=== PATIENT | female | born 2000 | race Caucasian/White ===

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

== ENCOUNTER 2018-02-12 22:12 | Emergency (ER) | payer OTHER ==
[2018-02-12 22:42] VITALS: TEMP 98.6
--- NOTE | 2018-02-12 23:05 | XR ---
EXAMINATION TYPE: XR wrist complete RT DATE OF EXAM: 02/12/2018 COMPARISON: NONE HISTORY: Wrist and hand pain TECHNIQUE: 4 views FINDINGS: I see no fracture nor dislocation. Scaphoid is intact. Joint spaces are normal. There are n o pathologic calcifications. IMPRESSION: Negative right wrist exam.
--- NOTE | 2018-02-12 23:06 | XR ---
EXAMINATION TYPE: XR hand complete RT DATE OF EXAM: 02/12/2018 COMPARISON: NONE HISTORY: Pain after falling off of a porch. TECHNIQUE: 3 views. FINDINGS: Metacarpals appear intact. I see no fracture nor dislocation. There are no erosions. Impression Negative right hand exam.
--- NOTE | 2018-02-13 00:17 | ED ---
Upper Extremity HPI - General Chief Complaint: Extremity Injury, Upper Stated Complaint: rt wrist injury Time Seen by Provider: 02/12/18 23:56 Source: patient, RN notes reviewed Mode of arrival: ambulatory Limitations: no limitations - History of Present Illness Initial Comments: This is a 17-year-old female who presents to the emergency department with chief complaint of right wrist injury. Patient states that at 8 PM this evening she was walking down her porch steps. She states that she missed the last step and fell forward landing on the dorsal aspect of her right arm. Patient complains of pain to the right wrist. Denies any other injuries or trauma. Denies head, neck or back pain. Denies fevers or chills, chest pain or shortness of breath, abdominal pain, nausea or vomiting. Patient does state that she has neutropenia and has had frequent fractures in the past. She requests a disc of her x-ray. - Related Data Home Medications Medication Instructions Recorded Confirmed Albuterol Inhaler [Ventolin Hfa 2 puff INHALATION RT-Q6H PRN 12/08/15 06/22/17 Inhaler] Lisdexamfetamine Dimesylate 40 mg PO QAM 12/08/15 06/22/17 [Vyvanse] Medroxyprogesterone Acetate 150 mg IM Q90D 07/30/16 06/22/17 [Depo-Provera] Montelukast [Singulair] 10 mg PO HS 01/16/17 06/22/17 QUEtiapine [SEROquel] 50 mg PO HS 01/16/17 06/22/17 oxyCODONE HCL/ACETAMINOPHEN 1 tab PO TID PRN 01/16/17 06/22/17 [Percocet 10-325 mg] Naproxen 500 mg PO Q12H PRN 03/11/17 06/22/17 Allergies Allergy/AdvReac Type Severity Reaction Status Date / Time codeine Allergy Rash/Hives Verified 02/12/18 22:42 Penicillins Allergy Rash/Hives Verified 02/12/18 22:42 Sulfa (Sulfonamide Allergy Rash/Hives Verified 02/12/18 22:42 Antibiotics) tomato Allergy Rash/Hives Verified 02/12/18 22:42 tramadol Allergy Rash/Hives Verified 02/12/18 22:42 venom-honey bee Allergy Swelling Verified 02/12/18 22:42 [bee venom (honey bee)] chocolate flavor AdvReac Alters Verified 02/12/18 22:42 Estrogen Levels lactose AdvReac Intolerant Verified 02/12/18 22:42 Review of Systems ROS Statement: Those systems with pertinent positive or pertinent negative responses have been documented in the HPI. ROS Other: All systems not noted in ROS Statement are negative. Past Medical History Past Medical History: Asthma Additional Past Medical History / Comment(s): osteopenia History of Any Multi-Drug Resistant Organisms: None Reported Past Surgical History: Ear Surgery, Orthopedic Surgery, Tonsillectomy Additional Past Surgical History / Comment(s): r knee x 2 Past Psychological History: ADD/ADHD, Bipolar Smoking Status: Never smoker Past Alcohol Use History: None Reported Past Drug Use History: None Reported General Exam - General Exam Comments Initial Comments: General: Awake and alert, well-developed; in no apparent distress. HEENT: Head atraumatic, normocephalic. Pupils are equal, round and reactive to light. Extraocular movements intact. Oropharynx moist without erythema or exudate. Neck: Supple. Normal ROM. Cardiovascular: Regular rate and rhythm. No murmurs, rubs or gallops. Chest symmetrical. Respiratory: Lungs clear to auscultation bilaterally. No wheezes, rales or rhonchi. Normal respiratory effort with no use of accessory muscles. Musculoskeletal: Normal range of motion of the right wrist and hand. There is soft tissue swelling and ecchymosis noted to the dorsal aspect. No snuffbox tenderness. Sensation is intact. Radial pulses are 2+ equal and palpable bilaterally. Skin: [place], warm and dry without rashes. Neurological: Alert and oriented x3. CN II-XII grossly intact. Speech is fluent and answers are appropriate. No focal neuro deficits. Psychiatric: Normal mood and affect. No overt signs of depression or anxiety noted. Limitations: no limitations Course Vital Signs 02/12/18 22:39 Temperature 98.6 F Pulse Rate 87 Respiratory 18 Rate Blood Pressure 128/80 O2 Sat by Pulse 97 Oximetry Medical Decision Making - Medical Decision Making This is a 17-year-old female who presents to the emergency department with chief complaint of right wrist injury. On physical examination, there is soft tissue swelling and ecchymosis noted to the dorsal aspect of the right wrist. No obvious gross deformities. No snuffbox tenderness. X-rays of the wrist and hand were obtained which revealed no acute abnormalities. Patient does report a history of neutropenia for which she suffered multiple fractures. She requested disks of her x-ray for follow-up. Patient vital signs are stable and she is in no acute distress. She will be discharged home at this time. She is in agreement and voices understanding. All questions were answered. - Radiology Data Radiology results: report reviewed, image reviewed X-ray right wrist impression: Negative right wrist exam. X-ray right hand impression: Negative right hand exam. Disposition Clinical Impression: Contusion of right wrist Disposition: HOME SELF-CARE Condition: Good Instructions: Contusion in Adults (ED) Additional Instructions: Please follow-up with orthopedics if no improvement in pain within 7-10 days. Please follow up with primary care provider within 1-2 days. Return to emergency department if symptoms should worsen or any concerns arise. Is patient prescribed a controlled substance at d/c from ED?: No Referrals: Juan J Sandra DO [Primary Care Provider] - 1-2 days Ramin William DO [Doctor of Osteopathic Medicine] - 1-2 days Time of Disposition: 00:36
[2018-02-13 00:43] VITALS: BP 120/85; PULSE 78; RESP 16
== END 2018-02-13 00:44 | disposition home or self-care (01) ==
LOC: EC 22:12
DX: S60.211A Contusion of right wrist, initial encounter (principal); J45.909 Unspecified asthma, uncomplicated; F90.9 Attention-deficit hyperactivity disorder, unspecified type; F31.9 Bipolar disorder, unspecified; Z79.3 Long term (current) use of hormonal contraceptives; Z79.899 Other long term (current) drug therapy; Z88.0 Allergy status to penicillin; Z88.2 Allergy status to sulfonamides; Z88.5 Allergy status to narcotic agent; Z91.011 Allergy to milk products; Z91.030 Bee allergy status; Z91.018 Allergy to other foods; W10.9XXA Fall (on) (from) unspecified stairs and steps, initial encounter
CPT/HCPCS: 99283

== ENCOUNTER 2018-04-12 22:18 | Emergency (ER) | payer OTHER ==
[2018-04-12 22:27] VITALS: RESP 18; TEMP 98.2
--- NOTE | 2018-04-12 23:17 | XR ---
EXAMINATION TYPE: XR foot complete LT DATE OF EXAM: 04/12/2018 COMPARISON: NONE HISTORY: Pain TECHNIQUE: 3 views FINDINGS: Metatarsals appear intact. I see no fracture nor dislocation. Joint spaces are normal. IMPRESSION: Negative left foot exam.
--- NOTE | 2018-04-12 23:18 | XR ---
EXAMINATION TYPE: XR ankle complete LT DATE OF EXAM: 04/12/2018 COMPARISON: NONE HISTORY: Ankle pain foot pain TECHNIQUE: 3 views FINDINGS: Ankle mortise is anatomic. I see no fracture nor dislocation. Joint spaces are normal. IMPRESSION: Negative left ankle exam.
--- NOTE | 2018-04-12 23:52 | ED ---
General Adult HPI - General Chief complaint: Extremity Injury, Lower Stated complaint: Ankle injury Source: patient, RN notes reviewed Mode of arrival: ambulatory Limitations: no limitations - History of Present Illness Initial comments: 17-year-old female presents to the emergency department for a chief complaint of left foot and ankle pain. Patient states she sprained her ankle 2 weeks ago. Patient states that yesterday she missed the last step when she was walking on the stairs and injured the ankle again. Patient states she has been ambulatory on it. She denies pain in the hip or pelvis. Patient does admit to pain in the foot as well. Patient denies falling or hitting her head. Patient has no other complaints at this time including shortness of breath, chest pain, abdominal pain, nausea or vomiting, headache, or visual changes. - Related Data Home Medications Medication Instructions Recorded Confirmed Albuterol Inhaler [Ventolin Hfa 2 puff INHALATION RT-Q6H PRN 12/08/15 06/22/17 Inhaler] Lisdexamfetamine Dimesylate 40 mg PO QAM 12/08/15 06/22/17 [Vyvanse] Medroxyprogesterone Acetate 150 mg IM Q90D 07/30/16 06/22/17 [Depo-Provera] Montelukast [Singulair] 10 mg PO HS 01/16/17 06/22/17 QUEtiapine [SEROquel] 50 mg PO HS 01/16/17 06/22/17 oxyCODONE HCL/ACETAMINOPHEN 1 tab PO TID PRN 01/16/17 06/22/17 [Percocet 10-325 mg] Naproxen 500 mg PO Q12H PRN 03/11/17 06/22/17 Allergies Allergy/AdvReac Type Severity Reaction Status Date / Time codeine Allergy Rash/Hives Verified 04/12/18 22:27 Penicillins Allergy Rash/Hives Verified 04/12/18 22:27 Sulfa (Sulfonamide Allergy Rash/Hives Verified 04/12/18 22:27 Antibiotics) tomato Allergy Rash/Hives Verified 04/12/18 22:27 tramadol Allergy Rash/Hives Verified 04/12/18 22:27 venom-honey bee Allergy Swelling Verified 04/12/18 22:27 [bee venom (honey bee)] chocolate flavor AdvReac Alters Verified 04/12/18 22:27 Estrogen Levels lactose AdvReac Intolerant Verified 04/12/18 22:27 Review of Systems ROS Statement: Those systems with pertinent positive or pertinent negative responses have been documented in the HPI. ROS Other: All systems not noted in ROS Statement are negative. Past Medical History Past Medical History: Asthma Additional Past Medical History / Comment(s): osteopenia History of Any Multi-Drug Resistant Organisms: None Reported Past Surgical History: Ear Surgery, Orthopedic Surgery, Tonsillectomy Additional Past Surgical History / Comment(s): r knee x 2 Past Psychological History: ADD/ADHD, Bipolar Smoking Status: Current every day smoker Past Alcohol Use History: None Reported Past Drug Use History: None Reported General Exam Limitations: no limitations General appearance: alert, in no apparent distress Head exam: Present: atraumatic, normocephalic, normal inspection Eye exam: Present: normal appearance. Absent: scleral icterus, conjunctival injection ENT exam: Present: normal exam, mucous membranes moist Neck exam: Present: normal inspection, full ROM. Absent: tenderness, meningismus, lymphadenopathy Respiratory exam: Present: normal lung sounds bilaterally. Absent: respiratory distress, wheezes, rales, rhonchi, stridor Cardiovascular Exam: Present: regular rate, normal rhythm, normal heart sounds. Absent: systolic murmur, diastolic murmur, rubs, gallop, clicks Extremities exam: Present: tenderness (Tenderness of the lateral malleolus and navicular of the left ankle and foot), normal capillary refill (Capillary refill less than 10 seconds and PT pulse 2+ in the left lower extremity), other (Sensation intact in the left toes and foot. No erythema or increased warmth or spreading redness. No evidence of infection.). Absent: full ROM (Full range of motion of digits. Patient has limited dorsiflexion of the left ankle to about 10. Patient has full plantar flexion.), joint swelling (No swelling or ecchymosis noted in the left lower extremity.) Back exam: Absent: tenderness Neurological exam: Present: alert, oriented X3, CN II-XII intact Psychiatric exam: Present: normal affect, normal mood Course Vital Signs 04/12/18 22:25 Temperature 98.2 F Pulse Rate 107 H Respiratory 18 Rate Blood Pressure 117/70 O2 Sat by Pulse 98 Oximetry Medical Decision Making - Medical Decision Making 17-year-old female presents to the emergency department for a chief complaint of left ankle pain times one day. Patient states she sprained it 2 weeks ago but then reinjured it yesterday. On exam patient has some limited range of motion when dorsi flexing the ankle. However plantar flexion is intact. Patient has mild lateral malleolus tenderness as well as mild forefoot tenderness. No swelling or ecchymosis noted. Patient is able to ambulate on the foot. X-ray of the foot and ankle were negative for any fractures. Patient may have a sprain of the ankle. At this time patient will be given an Josh wrap. She states she has crutches at home. Patient is to follow-up with orthopedics in one to 2 days. Patient to return to the emergency Department if she has any worsening symptoms. She was educated on rice therapy. Disposition Clinical Impression: Ankle pain, left Disposition: HOME SELF-CARE Condition: Good Instructions: Ankle Sprain (ED) Additional Instructions: Please follow-up with orthopedics in one to 2 days. In the meantime please rest ice and elevate the ankle. Use Josh wrap and crutches as needed. Return to the emergency department if you have any worsening symptoms. Is patient prescribed a controlled substance at d/c from ED?: No Referrals: Juan J Sandra DO [Primary Care Provider] - 1-2 days Inocente Malik MD [Medical Doctor] - 1-2 days Time of Disposition: 23:52
[2018-04-12 23:56] VITALS: BP 135/73; PULSE 88
== END 2018-04-12 23:59 | disposition home or self-care (01) ==
LOC: EC 22:18
DX: M25.572 Pain in left ankle and joints of left foot (principal); J45.909 Unspecified asthma, uncomplicated; F31.9 Bipolar disorder, unspecified; F90.9 Attention-deficit hyperactivity disorder, unspecified type; F17.200 Nicotine dependence, unspecified, uncomplicated; Z79.899 Other long term (current) drug therapy; Z88.5 Allergy status to narcotic agent; Z88.0 Allergy status to penicillin; Z88.2 Allergy status to sulfonamides; Z91.018 Allergy to other foods; Z91.030 Bee allergy status; Z88.8 Allergy status to other drugs, medicaments and biological substances
CPT/HCPCS: 99283

== ENCOUNTER 2018-05-11 20:25 | Emergency (ER) | payer OTHER ==
[2018-05-11] MEDS ORDERED: CEPHALEXIN 500 MG CAP PO STA (20:41)
[2018-05-11] MEDS ORDERED: CEPHALEXIN 500MG STARTER PACK 4 CAP BTL PO STA (20:41)
--- NOTE | 2018-05-11 20:49 | ED ---
General Adult HPI - General Chief complaint: Skin/Abscess/Foreign Body Stated complaint: Arm swelling Time Seen by Provider: 05/11/18 20:34 Source: patient, RN notes reviewed Mode of arrival: ambulatory Limitations: no limitations - History of Present Illness Initial comments: 17-year-old female presents to the emergency department for a chief complaint of rash times one day. Patient states she woke up today and had an area of erythema noted to the left forearm. She states she thought she may have been bitten by a bug during the night. She states the redness has began to spread more so became concerned. She states it is somewhat swollen as well. She states she did draw with a pen around the erythema before she left the house. She denies any fevers or chills. She denies any pain with movement of the elbow or wrist. Patient has no other complaints at this time including shortness of breath, chest pain, abdominal pain, nausea or vomiting, headache, or visual changes. - Related Data Home Medications Medication Instructions Recorded Confirmed Albuterol Inhaler [Ventolin Hfa 2 puff INHALATION RT-Q6H PRN 12/08/15 06/22/17 Inhaler] Lisdexamfetamine Dimesylate 40 mg PO QAM 12/08/15 06/22/17 [Vyvanse] Medroxyprogesterone Acetate 150 mg IM Q90D 07/30/16 06/22/17 [Depo-Provera] Montelukast [Singulair] 10 mg PO HS 01/16/17 06/22/17 QUEtiapine [SEROquel] 50 mg PO HS 01/16/17 06/22/17 oxyCODONE HCL/ACETAMINOPHEN 1 tab PO TID PRN 01/16/17 06/22/17 [Percocet 10-325 mg] Naproxen 500 mg PO Q12H PRN 03/11/17 06/22/17 Previous Rx's Medication Instructions Recorded Cephalexin [Keflex] 500 mg PO Q6HR 10 Days cap 05/11/18 Clindamycin HCl [Cleocin] 450 mg PO TID 10 Days cap 05/11/18 Allergies Allergy/AdvReac Type Severity Reaction Status Date / Time codeine Allergy Rash/Hives Verified 05/11/18 20:32 Penicillins Allergy Rash/Hives Verified 11/03/18 20:32 Sulfa (Sulfonamide Allergy Rash/Hives Verified 05/11/18 20:32 Antibiotics) tomato Allergy Rash/Hives Verified 05/11/18 20:32 tramadol Allergy Rash/Hives Verified 05/11/18 20:32 venom-honey bee Allergy Swelling Verified 05/11/18 20:32 [bee venom (honey bee)] chocolate flavor AdvReac Alters Verified 05/11/18 20:32 Estrogen Levels lactose AdvReac Intolerant Verified 05/11/18 20:32 Review of Systems ROS Statement: Those systems with pertinent positive or pertinent negative responses have been documented in the HPI. ROS Other: All systems not noted in ROS Statement are negative. Past Medical History Past Medical History: Asthma Additional Past Medical History / Comment(s): osteopenia History of Any Multi-Drug Resistant Organisms: None Reported Past Surgical History: Ear Surgery, Orthopedic Surgery, Tonsillectomy Additional Past Surgical History / Comment(s): r knee x 2 Past Psychological History: ADD/ADHD, Bipolar Smoking Status: Current every day smoker Past Alcohol Use History: None Reported Past Drug Use History: None Reported General Exam Limitations: no limitations General appearance: alert, in no apparent distress Head exam: Present: atraumatic, normocephalic, normal inspection Eye exam: Present: normal appearance, PERRL, EOMI. Absent: scleral icterus, conjunctival injection, periorbital swelling ENT exam: Present: normal exam, mucous membranes moist Neck exam: Present: normal inspection, full ROM. Absent: tenderness, meningismus, lymphadenopathy Respiratory exam: Present: normal lung sounds bilaterally. Absent: respiratory distress, wheezes, rales, rhonchi, stridor Cardiovascular Exam: Present: regular rate, normal rhythm, normal heart sounds. Absent: systolic murmur, diastolic murmur, rubs, gallop, clicks Extremities exam: Present: full ROM (Full range motion in the left wrist and elbow.), tenderness (Mild tenderness noted over the erythema.), normal capillary refill (Refill less than 2 seconds and radial pulse 2+ in the left upper extremity), other (Erythema 12 x 5 cm noted to the left volar forearm. Erythematous does not extend into the elbow or wrist joint. No evidence of abscess, no fluctuance noted. Erythema is warm to touch. It does appear to be cellulitic in nature.) Course Vital Signs 05/11/18 20:29 Temperature 98.3 F Pulse Rate 96 Respiratory 18 Rate Blood Pressure 132/85 O2 Sat by Pulse 99 Oximetry Medical Decision Making - Medical Decision Making 17-year-old female presents to the emergency determine for a chief complaint of edema noted of the left forearm. This started earlier today and has progressed. The area of erythema is 12 x 5 cm and does not extend across the elbow or wrist joints. It is warm to touch. It does appear to be cellulitic in nature. No fluctuance or evidence of abscess noted. X-ray doesn't show any evidence of free air or foreign body. Patient was given Keflex here in the emergency department as well as a prescription and a starter pack. She was also given clindamycin to cover for MRSA as she is ALLERGIC to sulfa antibiotics and could not take Bactrim. She will be given a prescription for this as well. Patient does have been drawn around the erythema and will monitor for any erythema that spreads outside of the black line. She was educated that it may spread somewhat in the next 24 hours as treatment is initiated but should not spread significantly. She will return if she notices worsening symptoms. She will follow up with primary care in 1-2 days. Disposition Clinical Impression: Cellulitis Disposition: HOME SELF-CARE Condition: Good Instructions: Cellulitis (ED) Additional Instructions: Please take antibiotics as directed. Monitor for any redness spreading outside of the lines a urine initially marked. It may spread somewhat over the next 24 hours but should not be significant. Please follow-up with primary care in 1-2 days. Return to the emergency department if you develop any other worsening symptoms. Prescriptions: Cephalexin [Keflex] 500 mg PO Q6HR 10 Days cap Clindamycin HCl [Cleocin] 450 mg PO TID 10 Days cap Is patient prescribed a controlled substance at d/c from ED?: No Referrals: Juan J Sandra DO [Primary Care Provider] - 1-2 days Time of Disposition: 21:53
--- NOTE | 2018-05-11 21:05 | XR ---
Left forearm HISTORY: Edema and pain 2 views of the left forearm There is soft tissue swelling present. Bone mineralization, joint spaces and alignment are maintained . There is no fracture or dislocation. IMPRESSION: Edema in soft tissues, correlate to exclude cellulitis.
[2018-05-11] MEDS ORDERED: CLINDAMYCIN 150 MG CAP PO STA (21:48)
[2018-05-11 22:13] VITALS: BP 120/87; PULSE 88; RESP 16; TEMP 98.1
== END 2018-05-11 22:11 | disposition home or self-care (01) ==
LOC: EC 20:25
DX: L03.114 Cellulitis of left upper limb (principal); J45.909 Unspecified asthma, uncomplicated; F90.9 Attention-deficit hyperactivity disorder, unspecified type; F31.9 Bipolar disorder, unspecified; F17.200 Nicotine dependence, unspecified, uncomplicated; Z79.3 Long term (current) use of hormonal contraceptives; Z79.899 Other long term (current) drug therapy; Z88.5 Allergy status to narcotic agent; Z88.0 Allergy status to penicillin; Z88.2 Allergy status to sulfonamides; Z91.018 Allergy to other foods; Z88.6 Allergy status to analgesic agent; Z91.013 Allergy to seafood; Z91.011 Allergy to milk products
CPT/HCPCS: 99283

== ENCOUNTER 2019-09-15 21:00 | Emergency (ER) | payer OTHER ==
[2019-09-15 21:12] VITALS: BP 125/81; TEMP 101.4
[2019-09-15] MEDS ORDERED: IBUPROFEN 400 MG TAB PO STA (21:47)
[2019-09-15] MEDS ORDERED: ACETAMINOPHEN TAB 325 MG TAB PO STA (21:47)
--- NOTE | 2019-09-15 21:59 | ED ---
URI HPI - General Chief Complaint: Upper Respiratory Infection Stated Complaint: cough/fever/breathing difficulties Time Seen by Provider: 09/15/19 21:13 Source: patient Mode of arrival: ambulatory Limitations: no limitations - History of Present Illness Initial Comments: This patient is a 19-year-old woman who presents to be evaluated for cough, congestion, fever and body aches. The patient states that symptoms began Sunday, and that she comes in tonight because her fever seemed to be higher. She is denying dyspnea. The cough has some occasional yellowish sputum. No neck stiffness or pain. MD Complaint: fever, cough, nasal congestion Onset/Timin -: days(s) Consistency: constant Improves With: nothing Context: sick contacts Associated Symptoms: fever, myalgias, nasal congestion, sore throat, cough Treatments Prior to Arrival: none - Related Data Home Medications Medication Instructions Recorded Confirmed Albuterol Inhaler [Ventolin Hfa 2 puff INHALATION RT-Q6H PRN 12/08/15 06/22/17 Inhaler] Lisdexamfetamine Dimesylate 40 mg PO QAM 12/08/15 06/22/17 [Vyvanse] Medroxyprogesterone Acetate 150 mg IM Q90D 07/30/16 06/22/17 [Depo-Provera] Montelukast [Singulair] 10 mg PO HS 01/16/17 06/22/17 QUEtiapine [SEROquel] 50 mg PO HS 01/16/17 06/22/17 oxyCODONE HCL/ACETAMINOPHEN 1 tab PO TID PRN 01/16/17 06/22/17 [Percocet 10-325 mg] Naproxen 500 mg PO Q12H PRN 03/11/17 06/22/17 Previous Rx's Medication Instructions Recorded Cephalexin [Keflex] 500 mg PO Q6HR 10 Days cap 05/11/18 Clindamycin HCl [Cleocin] 450 mg PO TID 10 Days cap 05/11/18 Allergies Allergy/AdvReac Type Severity Reaction Status Date / Time codeine Allergy Rash/Hives Verified 09/15/19 21:08 Penicillins Allergy Rash/Hives Verified 09/15/19 21:08 Sulfa (Sulfonamide Allergy Rash/Hives Verified 09/15/19 21:08 Antibiotics) tomato Allergy Rash/Hives Verified 09/15/19 21:08 tramadol Allergy Rash/Hives Verified 09/15/19 21:08 venom-honey bee Allergy Swelling Verified 09/15/19 21:08 [bee venom (honey bee)] chocolate flavor AdvReac Alters Verified 09/15/19 21:08 Estrogen Levels lactose AdvReac Intolerant Verified 09/15/19 21:08 Review of Systems ROS Statement: Those systems with pertinent positive or pertinent negative responses have been documented in the HPI. ROS Other: All systems not noted in ROS Statement are negative. Constitutional: Reports: fever, chills. Denies: weakness Eyes: Denies: eye pain, eye discharge, vision change ENT: Reports: throat pain, congestion. Denies: ear pain, hearing loss Respiratory: Reports: cough. Denies: dyspnea, wheezes, hemoptysis Cardiovascular: Denies: chest pain Gastrointestinal: Denies: abdominal pain, vomiting Genitourinary: Denies: dysuria, hematuria Musculoskeletal: Reports: myalgia. Denies: back pain Skin: Denies: rash Neurological: Reports: headache. Denies: weakness, numbness, paresthesias, confusion Past Medical History Past Medical History: Asthma, Seizure Disorder Additional Past Medical History / Comment(s): osteopenia, migraines History of Any Multi-Drug Resistant Organisms: None Reported Past Surgical History: Ear Surgery, Orthopedic Surgery, Tonsillectomy Additional Past Surgical History / Comment(s): r knee x 2 Past Psychological History: ADD/ADHD, Bipolar Smoking Status: Former smoker Past Alcohol Use History: None Reported Past Drug Use History: None Reported General Exam Limitations: no limitations General appearance: alert, in no apparent distress Head exam: Present: atraumatic, normocephalic Eye exam: Present: normal appearance. Absent: scleral icterus, conjunctival injection ENT exam: Present: mucous membranes moist Neck exam: Present: normal inspection, full ROM, lymphadenopathy. Absent: meningismus Respiratory exam: Present: normal lung sounds bilaterally. Absent: respiratory distress, wheezes, rales, rhonchi, stridor, accessory muscle use Cardiovascular Exam: Present: regular rate, normal rhythm, normal heart sounds. Absent: systolic murmur, diastolic murmur, rubs, gallop GI/Abdominal exam: Present: soft. Absent: distended, tenderness, guarding, rebound Extremities exam: Present: normal inspection, normal capillary refill. Absent: pedal edema, calf tenderness Neurological exam: Present: alert Skin exam: Present: warm, dry, intact, normal color. Absent: rash Course Vital Signs 09/15/19 09/15/19 09/15/19 21:09 22:10 22:44 Temperature 101.4 F H Pulse Rate 133 H 119 H Respiratory 20 18 16 Rate Blood Pressure 125/81 125/81 O2 Sat by Pulse 93 L 100 Oximetry Medical Decision Making - Lab Data Lab Results 09/15/19 Range/Units 22:02 Influenza Type A RNA Not Detected (Not Detectd) Influenza Type B (PCR) Not Detected (Not Detectd) Disposition Clinical Impression: Acute upper respiratory infection Disposition: HOME SELF-CARE Condition: Good Instructions (If sedation given, give patient instructions): Upper Respiratory Infection (ED) Is patient prescribed a controlled substance at d/c from ED?: No Referrals: Juan J Sandra DO [Primary Care Provider] - 1-2 days
[2019-09-15 22:45] VITALS: PULSE 119; RESP 16
--- NOTE | 2019-09-15 22:50 | XR ---
EXAMINATION TYPE: XR chest 2V DATE OF EXAM: 09/15/2019 COMPARISON: 08/27/2016 HISTORY: Chest pain TECHNIQUE: FINDINGS: Heart and mediastinum are normal. Lungs are clear. Diaphragm is normal. Bony thorax appears intact. Pulmonary vascularity is normal. IMPRESSION: Normal chest. Inspiration decreased slightly compared to old exam.
== END 2019-09-15 23:46 | disposition home or self-care (01) ==
LOC: EC 21:00
DX: J06.9 Acute upper respiratory infection, unspecified (principal); J45.909 Unspecified asthma, uncomplicated; F90.9 Attention-deficit hyperactivity disorder, unspecified type; F31.9 Bipolar disorder, unspecified; Z79.899 Other long term (current) drug therapy; Z88.0 Allergy status to penicillin; Z88.5 Allergy status to narcotic agent; Z88.2 Allergy status to sulfonamides; Z91.018 Allergy to other foods; Z91.030 Bee allergy status; Z91.011 Allergy to milk products; Z87.891 Personal history of nicotine dependence
CPT/HCPCS: 71046; 87502; 99283

== ENCOUNTER 2021-08-30 21:57 | Emergency (ER) | payer OTHER ==
[2021-08-30 22:24] VITALS: RESP 18; TEMP 98
[2021-08-30] MEDS ORDERED: KETOROLAC 15 MG/ML 1 ML VIAL IM STA (23:27)
--- NOTE | 2021-08-30 23:38 | ED ---
General Adult HPI - General Chief complaint: Dental/Oral Stated complaint: Tooth Pain, Headache Time Seen by Provider: 08/30/21 23:08 Source: patient, RN notes reviewed Mode of arrival: ambulatory - History of Present Illness Initial comments: 21-year-old female presents to the emergency Department with complaints of left-sided facial pain. Patient states that she has a known ruptured tympanic membrane for which she has been referred to ENT. States she also has a known broken tooth on the same side. Patient is currently experiencing left-sided facial and sinus tenderness that worsens with leaning forward and position change. Patient reports seeing her PCP yesterday who prescribed her an antibiotic, however she has not yet obtained that medicine and is experiencing increased pain. Patient states she has not taken anything to treat her pain. Denies fever, chills, dizziness, loss of hearing, difficulty chewing or swallowing, nausea, or vomiting. - Related Data Home Medications Medication Instructions Recorded Confirmed Albuterol Inhaler (Mhu) [Ventolin 2 puff INHALATION RT-Q6H PRN 12/08/15 06/22/17 Hfa Inhaler] Lisdexamfetamine Dimesylate 40 mg PO QAM 12/08/15 06/22/17 [Vyvanse] Medroxyprogesterone Acetate 150 mg IM Q90D 07/30/16 06/22/17 [Depo-Provera] Montelukast [Singulair] 10 mg PO HS 01/16/17 06/22/17 QUEtiapine [SEROquel] 50 mg PO HS 01/16/17 06/22/17 oxyCODONE HCL/ACETAMINOPHEN 1 tab PO TID PRN 01/16/17 06/22/17 [Percocet 10-325 mg] Naproxen 500 mg PO Q12H PRN 03/11/17 06/22/17 Previous Rx's Medication Instructions Recorded Cephalexin [Keflex] 500 mg PO Q6HR 10 Days cap 05/11/18 clindamycin HCL [Cleocin] 450 mg PO TID 10 Days cap 05/11/18 Allergies Allergy/AdvReac Type Severity Reaction Status Date / Time codeine Allergy Rash/Hives Verified 08/30/21 22:23 Penicillins Allergy Rash/Hives Verified 08/30/21 22:23 Sulfa (Sulfonamide Allergy Rash/Hives Verified 08/30/21 22:23 Antibiotics) tomato Allergy Rash/Hives Verified 08/30/21 22:23 tramadol Allergy Rash/Hives Verified 08/30/21 22:23 venom-honey bee Allergy Swelling Verified 08/30/21 22:23 [bee venom (honey bee)] chocolate flavor AdvReac Alters Verified 08/30/21 22:23 Estrogen Levels lactose AdvReac Intolerant Verified 08/30/21 22:23 Review of Systems ROS Statement: Those systems with pertinent positive or pertinent negative responses have been documented in the HPI. ROS Other: All systems not noted in ROS Statement are negative. Past Medical History Past Medical History: Asthma, Seizure Disorder Additional Past Medical History / Comment(s): osteopenia, migraines History of Any Multi-Drug Resistant Organisms: None Reported Past Surgical History: Ear Surgery, Orthopedic Surgery, Tonsillectomy Additional Past Surgical History / Comment(s): r knee x 2 Past Psychological History: ADD/ADHD, Bipolar Smoking Status: Never smoker Past Alcohol Use History: None Reported Past Drug Use History: None Reported General Exam Limitations: no limitations General appearance: alert, other (Well-developed, well-nourished female in mild distress. Initial temperature 98.0, pulse 105, respirations 18, blood pressure 153/99, pulse ox 98% on room air.) Eye exam: Present: normal appearance, PERRL. Absent: EOMI, scleral icterus, conjunctival injection, periorbital swelling, periorbital tenderness ENT exam: Present: mucous membranes moist, normal external ear exam, other (Left frontal and maxillary sinus tenderness upon palpation) Expanded TM/Canal exam: Perforation: Left TM (Healing perforation left tympanic membrane) Mouth exam: Present: normal external inspection, tongue normal. Absent: drooling, trismus, muffled voice Teeth exam: Present: dental tenderness # (16), other (No evidence of abscess). Absent: gingival enlargement Throat exam: normal inspection Neck exam: Present: normal inspection, full ROM. Absent: tenderness, lymphad enopathy Respiratory exam: Present: normal lung sounds bilaterally. Absent: respiratory distress, wheezes, rales, rhonchi, stridor Cardiovascular Exam: Present: regular rate, normal rhythm, normal heart sounds. Absent: systolic murmur, diastolic murmur, rubs, gallop, clicks Neurological exam: Present: alert, oriented X3 Psychiatric exam: Present: anxious Skin exam: Present: warm, dry, intact Course Vital Signs 08/30/21 08/31/21 22:22 00:21 Temperature 98 F Pulse Rate 105 H 87 Respiratory 18 18 Rate Blood Pressure 153/99 132/74 O2 Sat by Pulse 98 99 Oximetry Medical Decision Making - Medical Decision Making 21-year-old female with a past medical history of asthma and seizure disorder presents to the emergency department for evaluation of left-sided facial pressure and discomfort. Upon initial exam, patient complains of sensitivity to light, and tenderness upon palpation of the left frontal and maxillary sinus, and left ear pain. Patient does have a known tympanic membrane rupture on the left side for which she is awaiting a visit to ENT. Hole in tympanic membrane does appear small; there is no drainage, nor bulging. Patient also has dental pain on the left upper jaw. She does have dental caries and is awaiting an appointment with the dentist. Patient was prescribed Zithromax by her PCP for her sinus pressure, but has not yet obtained that antibiotic. Upon further review, this antibiotic is appropriate for use in patients with dental pain and the presence of penicillin and sulfa ALLERGIES. Patient was given a shot of T oradol for pain. Instructed to take OTC decongestant daily. Encouraged to obtain antibiotic as soon as possible. Reinforced the importance of follow-up care. Return parameters were discussed in detail. Patient verbalizes understanding and agrees with this plan. This patient's care was discussed with my attending Dr. Zepeda. Disposition Clinical Impression: Sinusitis, Tympanic membrane perforation, Dental caries Disposition: HOME SELF-CARE Condition: Stable Instructions (If sedation given, give patient instructions): Sinusitis (ED), Ruptured Eardrum (ED) Additional Instructions: Obtain the Z-pack as prescribed by your PCP. Take a decongestant as discussed. Alternate Tylenol and Motrin as needed for discomfort. Follow-up with ENT as scheduled. See Dr. Hall for further dental care. Return to the emergency department with any new, worsening, or concerning symptoms. Is patient prescribed a controlled substance at d/c from ED?: No Referrals: Juan J Sandra DO [Primary Care Provider] - 1-2 days Time of Disposition: 00:05
[2021-08-31 00:22] VITALS: BP 132/74; PULSE 87
== END 2021-08-31 00:19 | disposition home or self-care (01) ==
LOC: EC 21:57
DX: H72.92 Unspecified perforation of tympanic membrane, left ear (principal); J32.9 Chronic sinusitis, unspecified; K02.9 Dental caries, unspecified; J45.909 Unspecified asthma, uncomplicated; Z88.5 Allergy status to narcotic agent; Z88.0 Allergy status to penicillin; Z88.2 Allergy status to sulfonamides; Z91.018 Allergy to other foods; Z91.030 Bee allergy status; Z91.011 Allergy to milk products
CPT/HCPCS: 99283; 96372; J1885

== ENCOUNTER → 2022-01-10 | Outpatient (CLI) | payer OTHER | END | disposition home or self-care (01) | LOC: LABWHC1 15:28 | PROVIDERS: ATTEND Family Medicine | DX: R11.0 Nausea (principal) | CPT/HCPCS: 36415; 84702 ==

== ENCOUNTER 2022-01-11 00:37 | Emergency (ER) | payer OTHER ==
[2022-01-11 02:16] VITALS: BP 118/92; PULSE 85; RESP 16; TEMP 98.2
--- NOTE | 2022-01-11 02:56 | ED ---
Recheck HPI - General Chief Complaint: Abdominal Pain Stated Complaint: Abdominal pain Time Seen by Provider: 01/11/22 02:24 Source: patient, RN notes reviewed, old records reviewed Mode of arrival: ambulatory Limitations: no limitations - History of Present Illness Initial Comments: This is a 21-year-old female DF for evaluation. Patient presents today for evaluation regards to possible test. Patient took at-home test which was positive took a blood test which was unequivocal and she was told she may need an ultrasound to prove positive or negative for . Patient presents today without symptoms. Has no medical history takes no medications. Patient has no prior history of . Patient does have Depo MD Complaint: abnormal lab (Positive test urine negative test serum) Returns Today for: Called Because of Abnormal Lab/Test Symptoms Since Prior Visit: no new symptoms Context: called for abnormal lab result Associated Symptoms: none - Related Data Home Medications Medication Instructions Recorded Confirmed Albuterol Inhaler [Ventolin Hfa 2 puff INHALATION RT-Q6H PRN 12/08/15 06/22/17 Inhaler] Lisdexamfetamine Dimesylate 40 mg PO QAM 12/08/15 06/22/17 [Vyvanse] Medroxyprogesterone Acetate 150 mg IM Q90D 07/30/16 06/22/17 [Depo-Provera] Montelukast [Singulair] 10 mg PO HS 01/16/17 06/22/17 QUEtiapine [SEROquel] 50 mg PO HS 01/16/17 06/22/17 oxyCODONE HCL/ACETAMINOPHEN 1 tab PO TID PRN 01/16/17 06/22/17 [Percocet 10-325 mg] Naproxen 500 mg PO Q12H PRN 03/11/17 06/22/17 Previous Rx's Medication Instructions Recorded Cephalexin [Keflex] 500 mg PO Q6HR 10 Days cap 05/11/18 clindamycin HCL [Cleocin] 450 mg PO TID 10 Days cap 05/11/18 Allergies Allergy/AdvReac Type Severity Reaction Status Date / Time codeine Allergy Rash/Hives Verified 08/30/21 22:23 Penicillins Allergy Rash/Hives Verified 08/30/21 22:23 Sulfa (Sulfonamide Allergy Rash/Hives Verified 08/30/21 22:23 Antibiotics) tomato Allergy Rash/Hives Verified 08/30/21 22:23 tramadol Allergy Rash/Hives Verified 08/30/21 22:23 venom-honey bee Allergy Swelling Verified 08/30/21 22:23 [bee venom (honey bee)] chocolate flavor AdvReac Alters Verified 08/30/21 22:23 Estrogen Levels lactose AdvReac Intolerant Verified 08/30/21 22:23 Review of Systems ROS Statement: Those systems with pertinent positive or pertinent negative responses have been documented in the HPI. ROS Other: All systems not noted in ROS Statement are negative. Past Medical History Past Medical History: Asthma, Seizure Disorder Additional Past Medical History / Comment(s): osteopenia, migraines History of Any Multi-Drug Resistant Organisms: None Reported Past Surgical History: Ear Surgery, Orthopedic Surgery, Tonsillectomy Additional Past Surgical History / Comment(s): r knee x 4 Past Psychological History: ADD/ADHD, Bipolar Smoking Status: Never smoker Past Alcohol Use History: None Reported, Occasional Past Drug Use History: None Reported General Exam General appearance: alert, in no apparent distress Head exam: Present: atraumatic, normocephalic, normal inspection Eye exam: Present: normal appearance, PERRL, EOMI. Absent: scleral icterus, conjunctival injection, periorbital swelling ENT exam: Present: normal exam, mucous membranes moist Neck exam: Present: normal inspection. Absent: tenderness, meningismus, lymphadenopathy Respiratory exam: Present: normal lung sounds bilaterally. Absent: respiratory distress, wheezes, rales, rhonchi, stridor Cardiovascular Exam: Present: regular rate, normal rhythm, normal heart sounds. Absent: systolic murmur, diastolic murmur, rubs, gallop, clicks GI/Abdominal exam: Present: soft, normal bowel sounds. Absent: distended, tenderness, guarding, rebound, rigid Extremities exam: Present: normal inspection, full ROM, normal capillary refill. Absent: tenderness, pedal edema, joint swelling, calf tenderness Back exam: Present: normal inspection Neurological exam: Present: alert, oriented X3, CN II-XII intact Psychiatric exam: Present: normal affect, normal mood Skin exam: Present: warm, dry, intact, normal color. Absent: rash Course Vital Signs 01/11/22 02:08 Temperature 98.2 F Pulse Rate 85 Respiratory 16 Rate Blood Pressure 118/92 O2 Sat by Pulse 98 Oximetry - Reevaluation(s) Reevaluation #1: 01/11/22 03:34 Medical record is reviewed Reevaluation #2: 01/11/22 03:34 Spoke with patient regarding likelihood of not being , she is understanding Medical Decision Making - Medical Decision Making 21 female to the emergency department asymptomatic for abnormal outpatient lab testing. Patient will be given a follow-up ultrasound on outpatient basis and can follow up with her primary care Week - Lab Data Lab Results 01/11/22 01/11/22 Range/Units 02:51 02:51 Urine Color Yellow Urine Appearance Clear (Clear) Urine pH 6.0 (5.0-8.0) Ur Specific [place] 1.039 H (1.001-1.035) Urine Protein 1+ H (Negative) Urine Glucose (UA) Trace H (Negative) Urine Ketones Trace H (Negative) Urine Blood Negative (Negative) Urine Nitrite Negative (Negative) Urine Bilirubin Negative (Negative) Urine Urobilinogen 2.0 (<2.0) mg/dL Ur Leukocyte Esterase Negative (Negative) Urine RBC 2 (0-5) /hpf Urine WBC 1 (0-5) /hpf Ur Squamous Epith Cells 6 H (0-4) /hpf Urine Bacteria Rare H (None) /hpf Hyaline Casts 2 (0-2) /lpf Urine Mucus Many H (None) /hpf Urine HCG, Qual Not Detected (Not Detectd) Disposition Clinical Impression: Normal exam Disposition: HOME SELF-CARE Condition: Good Instructions (If sedation given, give patient instructions): Normal Exam (ED) Is patient prescribed a controlled substance at d/c from ED?: No Referrals: Juan J Sandra DO [Primary Care Provider] - 1-2 days Time of Disposition: 03:00
[2022-01-11 03:10] LABS: Appearance,Urine Clear (Clear); Bacteria,Urine Rare /hpf; Bilirubin,Urine Negative (Negative); Blood,Urine Negative (Negative); Color,Urine Yellow; Glucose,Urine (UA) Trace (Negative); Hyaline Casts,Urine 2 /lpf (0-2); Ketones,Urine Trace (Negative); Leukocyte Esterase,Urine Negative (Negative); Mucus,Urine Many /hpf; Nitrite,Urine Negative (Negative); Protein,Urine 1+ (Negative); RBC,Urine 2 /hpf (0-5); Specific Gravity,Urine 1.039 (1.001-1.035); Squamous Epithelial Cell,Urine 6 /hpf (0-4); WBC,Urine 1 /hpf (0-5)
== END 2022-01-11 03:40 | disposition home or self-care (01) ==
LOC: EC 00:37
DX: Z32.01 Encounter for pregnancy test, result positive (principal); J45.909 Unspecified asthma, uncomplicated; Z88.5 Allergy status to narcotic agent; Z88.0 Allergy status to penicillin; Z88.2 Allergy status to sulfonamides; Z91.018 Allergy to other foods; Z91.030 Bee allergy status
CPT/HCPCS: 81001; 81025

== ENCOUNTER → 2022-01-11 | Outpatient (CLI) | payer OTHER ==
--- NOTE | 2022-01-11 15:59 | US ---
EXAMINATION TYPE: Transabdominal DATE OF EXAM: 01/11/2022 3:45 PM COMPARISON: NONE CLINICAL HISTORY: R10.2 PELVIC PAIN. Pelvic pain. . Patient does not know how far along she is. P ositive beta-hCG test. EXAM PERFORMED: Transvaginal (TV) and Transabdominal (TA) EXAM MEASUREMENTS: GESTATIONAL AGE / DATING Physician Established: Not yet established Dates by LMP: LMP unknown Dates by First Scan: No previous this is first scan Dates by Current Scan for: No IUP seen at this time MATERNAL ANATOMY Uterus: 6.0 x 2.9 x 2.2 cm Right Ovary: 2.8 x 1.6 x 1.7 cm Left Ovary: 2.5 x 1.9 x 1.5 cm Post CDS / Adnexa: WNL Presence of free fluid: No Presence of corpus luteal cyst: No Presence of subchorionic bleed: No GESTATION / SURVEY IUP: No IUP seen at this time Date of LMP: Unknown Beta HcG (if available): N/A No IUP seen at this time. Anteverted uterus. No gestational sac, yolk sac, or pole identified. Endometrial stripe is only measuring up to 5 mm in thickness. No free fluid. Both ovaries seen symmetric and normal in size. No concerning adnexal masses. IMPRESSION: Findings could reflect too early to visualize intrauterine but spontaneous abor tion is in differential and ectopic cannot be entirely excluded. Serial beta hCG and ultras ound follow-up advised.
== END | disposition home or self-care (01) ==
LOC: RADUSWWP 14:36
PROVIDERS: ATTEND Emergency Medicine
DX: R10.2 Pelvic and perineal pain (principal)
CPT/HCPCS: 76801; 76817

== ENCOUNTER 2022-04-17 14:26 | Emergency (ER) | payer OTHER ==
[2022-04-17 14:33] VITALS: RESP 18; TEMP 98.4
[2022-04-17] MEDS ORDERED: SODIUM CHLORIDE 0.9% 1,000 ML IV STA (14:58)
[2022-04-17 15:47] LABS: Appearance,Urine Clear (Clear); Bilirubin,Urine Negative (Negative); Blood,Urine Negative (Negative); Color,Urine Light Yellow; Glucose,Urine (UA) Negative (Negative); Ketones,Urine Negative (Negative); Leukocyte Esterase,Urine Negative (Negative); Nitrite,Urine Negative (Negative); PH, Urine 6.5 (5.0-8.0); Protein,Urine Negative (Negative); Specific Gravity,Urine 1.025 (1.001-1.035); Urobilinogen,Urine <2.0 mg/dL (<2.0)
[2022-04-17 15:56] LABS: Amphetamine Screen,Urine Not Detected (NotDetected); Barbiturate Screen,Urine Not Detected (NotDetected); Benzodiazepines Screen,Urine Not Detected (NotDetected); Cocaine Screen,Urine Not Detected (NotDetected); Methadone Screen, Urine Not Detected (NotDetected); Opiate Screen,Urine Not Detected (NotDetected); Oxycodone Screen, Urine Not Detected (NotDetected); Phencyclidine Screen,Urine Not Detected (NotDetected); Tricyclic Antidepressant,Urine Not Detected (NotDetected); Urn Cannabinoid Scrn Not Detected (NotDetected)
[2022-04-17 15:57] LABS: Basophils % (A) 1 %; Eosinophils # (A) 0.1 k/uL (0-0.7); Eosinophils % (A) 2 %; HCT 45.3 % (34.0-46.0); HGB 15.4 gm/dL (11.4-16.0); Lymphocytes # (A) 2.5 k/uL (1.0-4.8); Lymphocytes % (A) 31 %; MCH 29.2 pg (25.0-35.0); MCV 85.8 fL (80.0-100.0); Monocytes # (A) 0.5 k/uL (0-1.0); Monocytes % (A) 6 %; Neutrophils # (A) 4.8 k/uL (1.3-7.7); Neutrophils % (A) 59 %; Platelet Count 217 k/uL (150-450); RBC 5.28 m/uL (3.80-5.40); RDW 12.2 % (11.5-15.5); WBC 8.1 k/uL (3.8-10.6)
[2022-04-17 16:05] LABS: INR 0.9 (<1.2); Partial Thromboplastin Time 24.5 sec (22.0-30.0); Prothrombin Time 9.7 sec (9.0-12.0)
[2022-04-17 16:11] LABS: ALT 42 U/L (4-34); AST 31 U/L (14-36); African American GFR (CKD) >90 (>60 ml/min/1.73 sqM); Albumin 4.9 g/dL (3.5-5.0); Alkaline Phosphatase 116 U/L (38-126); Anion Gap 15 mmol/L; Blood Urea Nitrogen 15 mg/dL (7-17); Calcium 9.8 mg/dL (8.4-10.2); Carbon Dioxide 22 mmol/L (22-30); Chloride 103 mmol/L (98-107); Glucose 96 mg/dL (74-99); Non-African American GFR(CKD) >90 (>60 ml/min/1.73 sqM); Potassium 4.2 mmol/L (3.5-5.1); Sodium 140 mmol/L (137-145); Total Bilirubin 0.4 mg/dL (0.2-1.3); Total Protein 7.8 g/dL (6.3-8.2)
[2022-04-17 16:27] LABS: HCG,Quantitative Serum <2.4 mIU/mL
--- NOTE | 2022-04-17 16:34 | CT ---
EXAMINATION TYPE: CT brain wo con DATE OF EXAM: 04/17/2022 COMPARISON: 04/08/2017 INDICATION: weakness and numbness to right arm DLP: 1098.4 mGycm, Automated exposure control for dose reduction was used. CONTRAST: None CT of the brain is performed utilizing 3 mm thick sections through the posterior fossa and 3 mm thick sections through the remaining calvarium. Study is performed within 24 hours of arrival to the hosp ital. No abnormal hyperdensity is present to suggest an acute intracranial hemorrhage. No mass lesion is evident. No acute infarcts are evident. Ventricles and sulci are appropriate for the patient age. Patent cavum septum lucidum and cavum verg ae are present, normal variants. Paranasal sinuses and mastoid air cells within the [id number] are clear. IMPRESSIONS: 1. No acute intracranial process. Follow-up MRI can be performed as clinically indicated.
--- NOTE | 2022-04-17 17:20 | ED ---
Neuro HPI - General Chief Complaint: Neuro Symptoms/Deficit Stated Complaint: right side numbness Time Seen by Provider: 04/17/22 14:51 Source: patient Mode of arrival: ambulatory Limitations: no limitations - History of Present Illness Is the patient presenting with stroke symptoms?: No Initial Comments: Patient is a 18-year-old female presenting with chief complaint of numbness to the right side of the face and right arm. Patient states that this started when she woke up at 13 00, it lasted for about 20-30 minutes, then resolved prior to presentation. At presentation patient has full range of motion and strength of the extremities. She admits to mild headache. Patient also states that there is a chance that she may be . She denies any neck pain or stiffness, nausea, vomiting, dizziness, vision or hearing changes, chest pain, difficulty breathing, weakness, abdominal pain. - Related Data Home Medications: Home Medications Medication Instructions Recorded Confirmed Albuterol Inhaler [Ventolin Hfa 2 puff INHALATION RT-Q6H PRN 12/08/15 04/17/22 Inhaler] Montelukast [Singulair] 10 mg PO HS 01/16/17 04/17/22 QUEtiapine [SEROquel] 50 mg PO HS 01/16/17 04/17/22 Naproxen 500 mg PO Q12H PRN 03/11/17 04/17/22 Cetirizine HCl 10 mg PO DAILY PRN 04/17/22 04/17/22 EPINEPHrine (Auto Inject) [Epipen] 0.3 mg IM ONCE PRN 04/17/22 04/17/22 Allergies/Adverse Reactions: Allergies Allergy/AdvReac Type Severity Reaction Status Date / Time codeine Allergy Rash/Hives Verified 04/17/22 16:49 Penicillins Allergy Rash/Hives Verified 04/17/22 16:50 Sulfa (Sulfonamide Allergy Rash/Hives Verified 04/17/22 16:49 Antibiotics) tomato Allergy Rash/Hives Verified 04/17/22 16:49 tramadol Allergy Rash/Hives Verified 04/17/22 16:49 venom-honey bee Allergy Swelling Verified 04/17/22 16:49 [bee venom (honey bee)] chocolate flavor AdvReac Alters Verified 04/17/22 16:49 Estrogen Levels lactose AdvReac Intolerant Verified 10/10/22 16:49 Review of Systems ROS Statement: Those systems with pertinent positive or pertinent negative responses have been documented in the HPI. ROS Other: All systems not noted in ROS Statement are negative. General Exam Limitations: no limitations Stroke MDM - Lab Data Result diagrams: 04/17/22 15:52 04/17/22 15:52 Lab Results 04/17/22 04/17/22 04/17/22 Range/Units 15:31 15:31 15:52 WBC 8.1 (3.8-10.6) k/uL RBC 5.28 (3.80-5.40) m/uL Hgb 15.4 (11.4-16.0) gm/dL Hct 45.3 (34.0-46.0) % MCV 85.8 (80.0-100.0) fL MCH 29.2 (25.0-35.0) pg MCHC 34.0 (31.0-37.0) g/dL RDW 12.2 (11.5-15.5) % Plt Count 217 (150-450) k/uL MPV 8.0 Neutrophils % 59 % Lymphocytes % 31 % Monocytes % 6 % Eosinophils % 2 % Basophils % 1 % Neutrophils # 4.8 (1.3-7.7) k/uL Lymphocytes # 2.5 (1.0-4.8) k/uL Monocytes # 0.5 (0-1.0) k/uL Eosinophils # 0.1 (0-0.7) k/uL Basophils # 0.0 (0-0.2) k/uL PT (9.0-12.0) sec INR (<1.2) APTT (22.0-30.0) sec Sodium (137-145) mmol/L Potassium (3.5-5.1) mmol/L Chloride (98-107) mmol/L Carbon Dioxide (22-30) mmol/L Anion Gap mmol/L BUN (7-17) mg/dL Creatinine (0.52-1.04) mg/dL Est GFR (CKD-EPI)AfAm (>60 ml/min/1.73 sqM) Est GFR (CKD-EPI)NonAf (>60 ml/min/1.73 sqM) Glucose (74-99) mg/dL Calcium (8.4-10.2) mg/dL Total Bilirubin (0.2-1.3) mg/dL AST (14-36) U/L ALT (4-34) U/L Alkaline Phosphatase (38-126) U/L Troponin I (0.000-0.034) ng/mL Total Protein (6.3-8.2) g/dL Albumin (3.5-5.0) g/dL HCG, Quant mIU/mL Urine Color Light Yellow Urine Appearance Clear (Clear) Urine pH 6.5 (5.0-8.0) Ur Specific [place] 1.025 (1.001-1.035) Urine Protein Negative (Negative) Urine Glucose (UA) Negative (Negative) Urine Ketones Negative (Negative) Urine Blood Negative (Negative) Urine Nitrite Negative (Negative) Urine Bilirubin Negative (Negative) Urine Urobilinogen <2.0 (<2.0) mg/dL Ur Leukocyte Esterase Negative (Negative) Urine HCG, Qual Not Detected (Not Detectd) Urine Opiates Screen Not Detected (NotDetected) Ur Oxycodone Screen Not Detected (NotDetected) Urine Methadone Screen Not Detected (NotDetected) Ur Propoxyphene Screen Not Detected (NotDetected) Ur Barbiturates Screen Not Detected (NotDetected) U Tricyclic Antidepress Not Detected (NotDetected) Ur Phencyclidine Scrn Not Detected (NotDetected) Ur Amphetamines Screen Not Detected (NotDetected) U Methamphetamines Scrn Not Detected (NotDetected) U Benzodiazepines Scrn Not Detected (NotDetected) Urine Cocaine Screen Not Detected (NotDetected) U Marijuana (THC) Screen Not Detected (NotDetected) 04/17/22 04/17/22 04/17/22 Range/Units 15:52 15:52 15:52 WBC (3.8-10.6) k/uL RBC (3.80-5.40) m/uL Hgb (11.4-16.0) gm/dL Hct (34.0-46.0) % MCV (80.0-100.0) fL MCH (25.0-35.0) pg MCHC (31.0-37.0) g/dL RDW (11.5-15.5) % Plt Count (150-450) k/uL MPV Neutrophils % % Lymphocytes % % Monocytes % % Eosinophils % % Basophils % % Neutrophils # (1.3-7.7) k/uL Lymphocytes # (1.0-4.8) k/uL Monocytes # (0-1.0) k/uL Eosinophils # (0-0.7) k/uL Basophils # (0-0.2) k/uL PT 9.7 (9.0-12.0) sec INR 0.9 (<1.2) APTT 24.5 (22.0-30.0) sec Sodium 140 (137-145) mmol/L Potassium 4.2 (3.5-5.1) mmol/L Chloride 103 (98-107) mmol/L Carbon Dioxide 22 (22-30) mmol/L Anion Gap 15 mmol/L BUN 15 (7-17) mg/dL Creatinine 0.90 (0.52-1.04) mg/dL Est GFR (CKD-EPI)AfAm >90 (>60 ml/min/1.73 sqM) Est GFR (CKD-EPI)NonAf >90 (>60 ml/min/1.73 sqM) Glucose 96 (74-99) mg/dL Calcium 9.8 (8.4-10.2) mg/dL Total Bilirubin 0.4 (0.2-1.3) mg/dL AST 31 (14-36) U/L ALT 42 H (4-34) U/L Alkaline Phosphatase 116 (38-126) U/L Troponin I <0.012 (0.000-0.034) ng/mL Total Protein 7.8 (6.3-8.2) g/dL Albumin 4.9 (3.5-5.0) g/dL HCG, Quant <2.4 mIU/mL Urine Color Urine Appearance (Clear) Urine pH (5.0-8.0) Ur Specific [place] (1.001-1.035) Urine Protein (Negative) Urine Glucose (UA) (Negative) Urine Ketones (Negative) Urine Blood (Negative) Urine Nitrite (Negative) Urine Bilirubin (Negative) Urine Urobilinogen (<2.0) mg/dL Ur Leukocyte Esterase (Negative) Urine HCG, Qual (Not Detectd) Urine Opiates Screen (NotDetected) Ur Oxycodone Screen (NotDetected) Urine Methadone Screen (NotDetected) Ur Propoxyphene Screen (NotDetected) Ur Barbiturates Screen (NotDetected) U Tricyclic Antidepress (NotDetected) Ur Phencyclidine Scrn (NotDetected) Ur Amphetamines Screen (NotDetected) U Methamphetamines Scrn (NotDetected) U Benzodiazepines Scrn (NotDetected) Urine Cocaine Screen (NotDetected) U Marijuana (THC) Screen (NotDetected) - Medical Decision Making Patient is a 21-year-old female presenting with chief complaint of numbness to the right arm and side of face that lasted for about 30 minutes upon wakening at 1300. This resolved prior to presentation. NIH 0, physical examination is unremarkable. Lab work is grossly negative. HCG negative. CT of the brain shows no acute intracranial abnormality. On reassessment patient is resting comfortably, symptoms have not returned. Symptoms are likely radicular in nature. Educated patient on these findings and appropriate follow-up. Follow-up with PCP. Report back to ER with any new or worsening symptoms. Discussed r eturn parameters and answered all questions. Patient conveyed verbal understanding and agreed to the plan. I discussed this case in detail with my attending Dr. Palmer. Past Medical History Past Medical History: Asthma, Seizure Disorder Additional Past Medical History / Comment(s): osteopenia, migraines History of Any Multi-Drug Resistant Organisms: None Reported Past Surgical History: Ear Surgery, Orthopedic Surgery, Tonsillectomy Additional Past Surgical History / Comment(s): r knee x 4 Past Psychological History: ADD/ADHD, Bipolar Smoking Status: Never smoker Past Alcohol Use History: None Reported, Occasional Past Drug Use History: None Reported Course Vital Signs 04/17/22 04/17/22 14:30 17:37 Temperature 98.4 F Pulse Rate 95 79 Respiratory 18 18 Rate Blood Pressure 125/88 127/89 O2 Sat by Pulse 90 L 100 Oximetry Disposition Clinical Impression: Paresthesia Disposition: HOME SELF-CARE Condition: Good Instructions (If sedation given, give patient instructions): Paresthesia (ED) Additional Instructions: Follow-up with PCP. Report back to ER with any new or worsening symptoms. Is patient prescribed a controlled substance at d/c from ED?: No Referrals: Juan J Sandra DO [Primary Care Provider] - 1-2 days Time of Disposition: 17:20
[2022-04-17 17:38] VITALS: BP 127/89; PULSE 79
== END 2022-04-17 17:40 | disposition home or self-care (01) ==
LOC: EC 14:26
DX: R20.0 Anesthesia of skin (principal); J45.909 Unspecified asthma, uncomplicated; Z88.0 Allergy status to penicillin; Z88.2 Allergy status to sulfonamides; Z88.8 Allergy status to other drugs, medicaments and biological substances; Z91.030 Bee allergy status; Z91.018 Allergy to other foods
CPT/HCPCS: 36415; 70450; 80053; 80306; 81003; 81025; 84484; 84702; 85025; 85610; 85730; 93005; 96360; 99284

== ENCOUNTER → 2022-06-21 | Outpatient (CLI) | payer OTHER ==
--- NOTE | 2022-06-21 16:31 | US ---
EXAMINATION TYPE: US pelvic complete DATE OF EXAM: 06/21/2022 COMPARISON: 01/11/2022 CLINICAL HISTORY: dysmenorrhea. Dysmenorrhe TECHNIQUE: Transabdominal (TA). Transabdominal sonographic images of the pelvis were acquired. EXAM MEASUREMENTS: Uterus: 6.7 x 3.1 x 4.3 cm Endometrial Stripe: Not well visualized. Right Ovary: 4.0 x 3.1 x 2.4 cm Left Ovary: 3.1 x 1.7 x 2.1 cm 1. Uterus: Anteverted wnl 2. Endometrium: Not well visualized. 3. Right Ovary: Cystic area seen 2.3 x 3.1 x 1.4 cm. New from paracentesis study 4. Left Ovary: wnl 5. Bilateral Adnexa: wnl 6. Posterior cul-de-sac: wnl Urinary bladder is sonolucent. IMPRESSION: 1. Left ovarian cyst. Follow-up exam in 6 weeks or following the next normal menstrual period is giovani mmended.
== END | disposition home or self-care (01) ==
LOC: RADUSWWP 12:25
PROVIDERS: ATTEND Family Medicine
DX: N83.202 Unspecified ovarian cyst, left side (principal); N94.6 Dysmenorrhea, unspecified
CPT/HCPCS: 76856

== ENCOUNTER → 2023-08-14 | Outpatient (CLI) | payer OTHER ==
--- NOTE | 2023-08-14 16:23 | US ---
EXAMINATION TYPE: US pelvic complete DATE OF EXAM: 08/14/2023 COMPARISON: 06/21/2022. CLINICAL INDICATION: Female, 23 years old with history of N91.2 AMENORRHEA, UNSPECIFIED; Menorrhagia TECHNIQUE: Transabdominal (TA). Date of LMP: 07/20/23 EXAM MEASUREMENTS: Uterus: 7.1 x 3.0 x 3.1 cm Endometrial Stripe: 0.4 cm Right Ovary: 3.0 x 1.8 x 1.9 cm Left Ovary: 3.6 x 3.0 x 2.0 cm 1. Uterus: Anteverted wnl 2. Endometrium: wnl 3. Right Ovary: follicles noted 4. Left Ovary: follicles noted resolution of prior left ovarian cyst. 5. Bilateral Adnexa: wnl 6. Posterior cul-de-sac: wnl IMPRESSION: 1. No evidence for acute process. 2. No ovarian cyst identified.
== END | disposition home or self-care (01) ==
LOC: RADUSWWP 14:38
PROVIDERS: ATTEND Family Medicine
DX: N92.1 Excessive and frequent menstruation with irregular cycle (principal)
CPT/HCPCS: 76856

== ENCOUNTER 2023-10-28 10:18 | Emergency (ER) | payer OTHER ==
--- NOTE | 2023-10-28 10:39 | ED ---
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 Patient is 6 weeks and . States that yesterday she started to notice clear discharge as well as increasing cramping in the pelvic area. Denies any odors with this discharge or any vaginal itching. Also denies any concern for STD exposure. She may have had minor bleeding, but nothing persistent. 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 Denies any nausea or vomiting. MD Complaint: vaginal discharge, pelvic pain - Related Data Home Medications Medication Instructions Recorded Confirmed Albuterol Inhaler [Ventolin Hfa 2 puff INHALATION RT-Q6H PRN 12/08/15 04/17/22 Inhaler] Montelukast [Singulair] 10 mg PO HS 01/16/17 04/17/22 QUEtiapine [SEROquel] 50 mg PO HS 01/16/17 04/17/22 Naproxen 500 mg PO Q12H PRN 03/11/17 04/17/22 Cetirizine HCl 10 mg PO DAILY PRN 04/17/22 04/17/22 EPINEPHrine (Auto Inject) [Epipen] 0.3 mg IM ONCE PRN 04/17/22 04/17/22 Allergies Allergy/AdvReac Type Severity Reaction Status Date / Time codeine Allergy Rash/Hives Verified 10/28/23 10:27 Penicillins Allergy Rash/Hives Verified 10/28/23 10:27 Sulfa (Sulfonamide Allergy Rash/Hives Verified 10/28/23 10:27 Antibiotics) tomato Allergy Rash/Hives Verified 10/28/23 10:27 tramadol Allergy Rash/Hives Verified 10/28/23 10:27 venom-honey bee Allergy Swelling Verified 10/28/23 10:27 [bee venom (honey bee)] chocolate flavor AdvReac Alters Verified 10/28/23 10:27 Estrogen Levels lactose AdvReac Intolerant Verified 10/28/23 10:27 Review of Systems ROS Statement: Those systems with pertinent positive or pertinent negative responses have been documented in the HPI. ROS Other: All systems not noted in ROS Statement are negative. Past Medical History Past Medical History: Asthma, Seizure Disorder Additional Past Medical History / Comment(s): osteopenia, migraines History of Any Multi-Drug Resistant Organisms: None Reported Past Surgical History: Ear Surgery, Orthopedic Surgery, Tonsillectomy Additional Past Surgical History / Comment(s): r knee x 4 Past Psychological History: ADD/ADHD, Bipolar Smoking Status: Never smoker Past Alcohol Use History: None Reported, Occasional Past Drug Use History: None Reported General Exam Limitations: no limitations General appearance: alert, in no apparent distress Head exam: Present: atraumatic, normocephalic, normal inspection Respiratory exam: Present: normal lung sounds bilaterally. Absent: respiratory distress, wheezes, rales, rhonchi, stridor Cardiovascular Exam: Present: regular rate, normal rhythm, normal heart sounds. Absent: systolic murmur, diastolic murmur, rubs, gallop, clicks Neurological exam: Present: alert, oriented X3, CN II-XII intact Psychiatric exam: Present: normal affect, normal mood Skin exam: Present: warm, dry, intact, normal color. Absent: rash Course Vital Signs 10/28/23 10/28/23 10:24 12:00 Temperature 98.1 F Pulse Rate 82 82 Respiratory 18 20 Rate Blood Pressure 125/84 131/90 O2 Sat by Pulse 99 98 Oximetry Medical Decision Making - Medical Decision Making This is a 23 year old female who presents to the emergency department for pelvic pain and discharge in . Was pt. sent in by a medical professional or institution? @ -No Did you speak to anyone other than the patient for history? @ -No Did you review nursing and triage notes? @ -Yes, and I agree, it is accurate with regards to the patient's symptoms. Were old charts reviewed? @ -No Differential Diagnosis? @ -Differential Abdominal Pain Women: Appendicitis, Cholecystitis, diverticulosis, ischemic bowel, pancreatitis, hepatitis, UTI, gastroenteritis, AAA, incarcerated hernia, bowel obstruction, constipation, inflammatory bowel, hepatitis, peptic ulcer disease, splenic infarction, perforated viscus, vulvitis, ovarian torsion, PID, kidney stone, placenta abruption, this is not meant to be an all-inclusive list EKG interpreted by me (3pts min.)? @ -Not obtained X-rays interpreted by me (1pt min.)? @ -Not obtained CT interpreted by me (1pt min.)? @ -Not obtained U/S interpreted by me (1pt. min.)? @ -Obstetrics ultrasound obtained. My interpretation identifies no evidence of an IUP. What testing was considered but not performed? (CT, X-rays, U/S, labs)? Why? @ -None What meds were considered but not given? Why? @ -None Did you discuss the management of the patient with other professionals? @ -No Did you reconcile home meds? @ -No Was smoking cessation discussed for >3mins.? @ -No Was critical care preformed (if so, how long)? @ -No Were there social determinants of health that impacted care today? How? (Homelessness, low income, unemployed, alcoholism, drug addiction, transportat ion, low edu. Level, literacy, decrease access to med. care, long term, rehab)? @ -No Was there de-escalation of care discussed even if they declined? (Discuss DNR or withdrawal of care, Hospice)? @ -No What co-morbidities impacted this encounter? (DM, HTN, Smoking, COPD, CAD, Cancer, CVA, Hep., AIDS, mental health diagnosis, sleep apnea, morbid obesity)? @ - Was patient admitted / discharged? @ -Discharged. Lab work unremarkable. hCG is 2461. Urinalysis negative for signs of infection. Obstetrics ultrasound obtained demonstrating a fluid locule along the fundal endometrium. If this represents a gestational sac of an early intrauterine , this would correspond to 5 weeks 1 day. No yolk sac or clear pole is identified at this time. Advised the patient that this may be related to an early , however failed and pseudo gestational sac leading to nonvisualized ectopic both should be excluded per radiology. Patient was given a lab order to have beta hCG count repeated in 48 hours. 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 Patient discharged home in stable condition. Undiagnosed new problem with uncertain prognosis? @ -None Drug Therapy requiring intensive monitoring for toxicity (Heparin, Nitro, Insulin, Cardizem)? @ -None Were any procedures done? @ -None Diagnosis/symptom? @ -Abdominal pain in Acute, or Chronic, or Acute on Chronic? @ -Acute Uncomplicated (without systemic symptoms) or Complicated (systemic symptoms)? @ -Uncomplicated Side effects of treatment? @ -None Exacerbation, Progression, or Severe Exacerbation] @ -Not applicable Poses a threat to life or bodily function? @ -No Return precautions reviewed in depth, the patient is instructed to return to the emergency department with any new, worsening, or concerning symptoms. Patient verbalized understanding. This case was discussed in detail with the attending ED physician, Dr. Zamudio. Presentation, findings, and treatment plan discussed in detail as well. - Lab Data Result diagrams: 10/28/23 10:44 10/28/23 10:44 Lab Results 10/28/23 10/28/23 10/28/23 Range/Units 10:43 10:44 10:44 WBC 10.1 (3.8-10.6) k/uL RBC 4.64 (3.80-5.40) m/uL Hgb 13.9 (11.4-16.0) gm/dL Hct 40.6 (34.0-46.0) % MCV 87.5 (80.0-100.0) fL MCH 29.9 (25.0-35.0) pg MCHC 34.1 (31.0-37.0) g/dL RDW 13.2 (11.5-15.5) % Plt Count 197 (150-450) k/uL MPV 8.5 Neutrophils % 68 % Lymphocytes % 22 % Monocytes % 6 % Eosinophils % 1 % Basophils % 0 % Neutrophils # 6.8 (1.3-7.7) k/uL Lymphocytes # 2.2 (1.0-4.8) k/uL Monocytes # 0.6 (0-1.0) k/uL Eosinophils # 0.1 (0-0.7) k/uL Basophils # 0.0 (0-0.2) k/uL Sodium 138 (137-145) mmol/L Potassium 4.6 (3.5-5.1) mmol/L Chloride 108 H (98-107) mmol/L Carbon Dioxide 24 (22-30) mmol/L Anion Gap 6 mmol/L BUN 12 (7-17) mg/dL Creatinine 0.63 (0.52-1.04) mg/dL Est GFR (CKD-EPI)AfAm >90 (>60 ml/min/1.73 sqM) Est GFR (CKD-EPI)NonAf >90 (>60 ml/min/1.73 sqM) Glucose 117 H (74-99) mg/dL Calcium 8.9 (8.4-10.2) mg/dL Total Bilirubin 0.3 (0.2-1.3) mg/dL AST 30 (14-36) U/L ALT 46 H (4-34) U/L Alkaline Phosphatase 79 (38-126) U/L Total Protein 6.9 (6.3-8.2) g/dL Albumin 4.1 (3.5-5.0) g/dL HCG, Quant 2461.2 mIU/mL Urine Color Urine Appearance (Clear) Urine pH (5.0-8.0) Ur Specific [place] (1.001-1.035) Urine Protein (Negative) Urine Glucose (UA) (Negative) Urine Ketones (Negative) Urine Blood (Negative) Urine Nitrite (Negative) Urine Bilirubin (Negative) Urine Urobilinogen (<2.0) mg/dL Ur Leukocyte Esterase (Negative) Urine RBC (0-5) /hpf Urine WBC (0-5) /hpf Ur Squamous Epith Cells (0-4) /hpf Urine Bacteria (None) /hpf Urine Mucus (None) /hpf Blood Type A Positive Blood Type Recheck No Previous Record Bld Type Recheck Status [facility] ONLY 10/28/23 Range/Units 11:27 WBC (3.8-10.6) k/uL RBC (3.80-5.40) m/uL Hgb (11.4-16.0) gm/dL Hct (34.0-46.0) % MCV (80.0-100.0) fL MCH (25.0-35.0) pg MCHC (31.0-37.0) g/dL RDW (11.5-15.5) % Plt Count (150-450) k/uL MPV Neutrophils % % Lymphocytes % % Monocytes % % Eosinophils % % Basophils % % Neutrophils # (1.3-7.7) k/uL Lymphocytes # (1.0-4.8) k/uL Monocytes # (0-1.0) k/uL Eosinophils # (0-0.7) k/uL Basophils # (0-0.2) k/uL Sodium (137-145) mmol/L Potassium (3.5-5.1) mmol/L Chloride (98-107) mmol/L Carbon Dioxide (22-30) mmol/L Anion Gap mmol/L BUN (7-17) mg/dL Creatinine (0.52-1.04) mg/dL Est GFR (CKD-EPI)AfAm (>60 ml/min/1.73 sqM) Est GFR (CKD-EPI)NonAf (>60 ml/min/1.73 sqM) Glucose (74-99) mg/dL Calcium (8.4-10.2) mg/dL Total Bilirubin (0.2-1.3) mg/dL AST (14-36) U/L ALT (4-34) U/L Alkaline Phosphatase (38-126) U/L Total Protein (6.3-8.2) g/dL Albumin (3.5-5.0) g/dL HCG, Quant mIU/mL Urine Color Yellow Urine Appearance Cloudy H (Clear) Urine pH 6.0 (5.0-8.0) Ur Specific [place] 1.032 (1.001-1.035) Urine Protein Trace H (Negative) Urine Glucose (UA) Trace H (Negative) Urine Ketones Negative (Negative) Urine Blood Negative (Negative) Urine Nitrite Negative (Negative) Urine Bilirubin Negative (Negative) Urine Urobilinogen <2.0 (<2.0) mg/dL Ur Leukocyte Esterase Small H (Negative) Urine RBC 3 (0-5) /hpf Urine WBC 2 (0-5) /hpf Ur Squamous Epith Cells 13 H (0-4) /hpf Urine Bacteria Few H (None) /hpf Urine Mucus Many H (None) /hpf Blood Type Blood Type Recheck Bld Type Recheck Status - Radiology Data Radiology results: report reviewed, image reviewed Disposition Clinical Impression: Abdominal pain in Disposition: HOME SELF-CARE Instructions (If sedation given, give patient instructions): Abdominal Pain in (ED) Additional Instructions: Return to the emergency department with any new, worsening, or concerning symptoms. You can take Tylenol as needed for cramping. Make sure you are taking a vitamin. Take the lab slip with you to have your hCG levels repeated on Sunday. Follow up with your primary care provider in 1-2 days. Is patient prescribed a controlled substance at d/c from ED?: No Referrals: Juan J Sandra DO [Primary Care Provider] - 1-2 days Time of Disposition: 12:12
[2023-10-28 11:01] VITALS: PULSE 82; TEMP 98.1
[2023-10-28 11:15] LABS: ALT 46 U/L (4-34); AST 30 U/L (14-36); African American GFR (CKD) >90 (>60 ml/min/1.73 sqM); Albumin 4.1 g/dL (3.5-5.0); Alkaline Phosphatase 79 U/L (38-126); Anion Gap 6 mmol/L; Blood Urea Nitrogen 12 mg/dL (7-17); Calcium 8.9 mg/dL (8.4-10.2); Carbon Dioxide 24 mmol/L (22-30); Chloride 108 mmol/L (98-107); Glucose 117 mg/dL (74-99); Non-African American GFR(CKD) >90 (>60 ml/min/1.73 sqM); Potassium 4.6 mmol/L (3.5-5.1); Sodium 138 mmol/L (137-145); Total Bilirubin 0.3 mg/dL (0.2-1.3); Total Protein 6.9 g/dL (6.3-8.2)
[2023-10-28 11:23] LABS: Basophils % (A) 0 %; Eosinophils # (A) 0.1 k/uL (0-0.7); Eosinophils % (A) 1 %; HCT 40.6 % (34.0-46.0); HGB 13.9 gm/dL (11.4-16.0); Lymphocytes # (A) 2.2 k/uL (1.0-4.8); Lymphocytes % (A) 22 %; MCH 29.9 pg (25.0-35.0); MCHC 34.1 g/dL (31.0-37.0); MCV 87.5 fL (80.0-100.0); Mean Platelet Volume 8.5; Monocytes # (A) 0.6 k/uL (0-1.0); Monocytes % (A) 6 %; Neutrophils # (A) 6.8 k/uL (1.3-7.7); Neutrophils % (A) 68 %; Platelet Count 197 k/uL (150-450); RBC 4.64 m/uL (3.80-5.40); RDW 13.2 % (11.5-15.5); WBC 10.1 k/uL (3.8-10.6)
[2023-10-28 11:29] LABS: HCG,Quantitative Serum 2461.2 mIU/mL
[2023-10-28 11:43] LABS: Appearance,Urine Cloudy (Clear); Bacteria,Urine Few /hpf; Bilirubin,Urine Negative (Negative); Blood,Urine Negative (Negative); Color,Urine Yellow; Glucose,Urine (UA) Trace (Negative); Ketones,Urine Negative (Negative); Leukocyte Esterase,Urine Small (Negative); Mucus,Urine Many /hpf; Nitrite,Urine Negative (Negative); Protein,Urine Trace (Negative); RBC,Urine 3 /hpf (0-5); Specific Gravity,Urine 1.032 (1.001-1.035); Squamous Epithelial Cell,Urine 13 /hpf (0-4); Urobilinogen,Urine <2.0 mg/dL (<2.0); WBC,Urine 2 /hpf (0-5)
--- NOTE | 2023-10-28 11:45 | US ---
EXAMINATION TYPE: Ultrasound OB <= 14 weeks transvaginal DATE OF EXAM: 10/28/2023 11:13 AM COMPARISON: NONE CLINICAL INDICATION: Female, 23 years old with history of Pelvic pain and discharge in ; Elisabeth n x 1 week - intermittent; clear discharge that smells like urine per patient EXAM PERFORMED: Transvaginal (TV) and Transabdominal (TA) EXAM MEASUREMENTS: GESTATIONAL AGE / DATING Physician Established: (5 weeks/5 days) EDC: 06/24/2024 Dates by Current Scan for: (5 weeks/1 days) EDC: 06/25/2024 MATERNAL ANATOMY Uterus: 7.5 x 3.3 x 3.9 cm Right Ovary: 4.7 x 2.4 x 2.1 cm Left Ovary: 2.7 x 1.9 x 1.9 Post CDS / Adnexa: WNL Presence of free fluid: NO Presence of corpus luteal cyst: NO Presence of subchorionic bleed: NO GESTATION / SURVEY CRL: 0.21 (5 weeks/6 days); potentially inaccurate due to early gestational age MSD: 0.56 (5 weeks/1 days) Yolk Sac (normal less than 6mm): Not Seen Heart Rate: Too early to identify Rhythm: NA IUP: Potential IUP seen Nuchal Translucency 10-14wks (normal less than 3mm): NA Age Appropriate Anatomy Cord Insertion: NA Limbs: NA Calvarium: NA Date of LMP: Unknown Beta HcG (if available): 10/22/2023 = 181 IMPRESSION: 1. A fluid locule along the fundal endometrium. If this represents a gestational sac of an early intr auterine , this would correspond to 5 weeks 1 day. No yolk sac or clear pole seen at t his time. 2. Recommend serial beta-hCG and ultrasound follow-up to ensure the appearance of a normal pole with cardiac activity. Failed and pseudogestational sac relating to a nonvisualized ectopi c both should be excluded.
[2023-10-28 12:17] VITALS: BP 131/90; RESP 20
== END 2023-10-28 12:40 | disposition home or self-care (01) ==
LOC: EC 10:18
DX: O26.891 Other specified pregnancy related conditions, first trimester (principal); R10.9 Unspecified abdominal pain; Z3A.01 Less than 8 weeks gestation of pregnancy; Z88.0 Allergy status to penicillin; Z88.2 Allergy status to sulfonamides; Z88.5 Allergy status to narcotic agent; Z91.018 Allergy to other foods; Z91.030 Bee allergy status; Z91.011 Allergy to milk products; Z88.8 Allergy status to other drugs, medicaments and biological substances
CPT/HCPCS: 36415; 76801; 76817; 80053; 81001; 84702; 85025; 86900; 86901; 99284

== ENCOUNTER → 2023-11-21 | Outpatient (CLI) | payer OTHER ==
--- NOTE | 2023-11-21 17:29 | US ---
EXAMINATION TYPE: Transabdominal DATE OF EXAM: 11/21/2023 10:14 AM COMPARISON: OB ultrasound 10/28/2023 CLINICAL INDICATION: Female, 23 years old with history of Z34.90 ENCNTR FOR SUPRVSN OF NORMAL PREGNAN CY, UNS; dates EXAM PERFORMED: Transabdominal (TA) EXAM MEASUREMENTS: GESTATIONAL AGE / DATING Physician Established: (9 weeks/1 days) EDC: 06/24/2024 Dates by LMP: (9 weeks/1 days) EDC: 06/24/2024 Dates by First Scan: (5 weeks/5 days) EDC: 06/24/2024 Dates by Current Scan for: (9 weeks/0 days) EDC: 06/25/2024 MATERNAL ANATOMY Uterus: 9.7 x 4.7 x 5.3 cm Right Ovary: 2.1 x 1.3 x 2.0 cm Left Ovary: Obscured by bowel gas. Post CDS / Adnexa: wnl Presence of free fluid: no Presence of corpus luteal cyst: no Presence of subchorionic bleed: no GESTATION / SURVEY CRL: 2.2cm (9 weeks/0 days) Yolk Sac (normal less than 6mm): 3mm Heart Rate: 163 bpm Rhythm: Normal IUP: Viable IUP IMPRESSION: Single live intrauterine with calculated ultrasound age of 9 weeks 0 days with an estimated date of delivery of 06/25/2024.
== END | disposition home or self-care (01) ==
LOC: RADUSWWP 09:56
PROVIDERS: ATTEND Obstetrics & Gynecology
DX: Z34.90 Encounter for supervision of normal pregnancy, unspecified, unspecified trimester (principal); Z3A.09 9 weeks gestation of pregnancy
CPT/HCPCS: 76801

== ENCOUNTER 2023-12-27 21:00 | Emergency (ER) | payer OTHER ==
[2023-12-27 21:07] VITALS: TEMP 98.3
--- NOTE | 2023-12-27 21:43 | ED ---
General Adult HPI - General Chief complaint: OB/Uterine Contractions Stated complaint: 14 wks preg - Cramping Time Seen by Provider: 12/27/23 21:11 Source: patient Mode of arrival: ambulatory Limitations: no limitations - History of Present Illness Initial comments: Dictation was produced using [employer] dictation software. please excuse any grammatical, word or spelling errors. Chief Complaint: 23-year-old female allegedly 14 weeks presents with pelvic cramping History of Present Illness: Patient 23-year-old female presents emergency depart ment pelvic cramping for the last 2 days. This is patient's third . She had 2 miscarriages prior to this. She has no children. Patient states for the last 2 days she has been having some cramping that she thought was secondary to the heat and not having working AC unit at home. Patient [place] any vaginal discharge or vaginal bleeding. Denies any radiation of symptoms. No fever chills night sweats. The ROS documented in this emergency department record has been reviewed and confirmed by me. Those systems with pertinent positive or negative responses have been documented in the HPI. All other systems are other negative and/or noncontributory. - Related Data Home Medications Medication Instructions Recorded Confirmed Albuterol Inhaler [Ventolin Hfa 2 puff INHALATION RT-Q6H PRN 12/08/15 04/17/22 Inhaler] Montelukast [Singulair] 10 mg PO HS 01/16/17 04/17/22 QUEtiapine [SEROquel] 50 mg PO HS 01/16/17 04/17/22 Naproxen 500 mg PO Q12H PRN 03/11/17 04/17/22 Cetirizine HCl 10 mg PO DAILY PRN 04/17/22 04/17/22 EPINEPHrine (Auto Inject) [Epipen] 0.3 mg IM ONCE PRN 04/17/22 04/17/22 Allergies Allergy/AdvReac Type Severity Reaction Status Date / Time codeine Allergy Rash/Hives Verified 12/27/23 21:07 Penicillins Allergy Rash/Hives Verified 12/27/23 21:07 Sulfa (Sulfonamide Allergy Rash/Hives Verified 12/27/23 21:07 Antibiotics) tomato Allergy Rash/Hives Verified 12/27/23 21:07 tramadol Allergy Rash/Hives Verified 12/27/23 21:07 venom-honey bee Allergy Swelling Verified 12/27/23 21:07 [bee venom (honey bee)] chocolate flavor AdvReac Alters Verified 12/27/23 21:07 Estrogen Levels lactose AdvReac Intolerant Verified 12/27/23 21:07 Review of Systems ROS Statement: Those systems with pertinent positive or pertinent negative responses have been documented in the HPI. ROS Other: All systems not noted in ROS Statement are negative. Past Medical History Past Medical History: Asthma, Seizure Disorder Additional Past Medical History / Comment(s): osteopenia, migraines History of Any Multi-Drug Resistant Organisms: None Reported Past Surgical History: Ear Surgery, Orthopedic Surgery, Tonsillectomy Additional Past Surgical History / Comment(s): r knee x 4 Past Psychological History: ADD/ADHD, Bipolar Smoking Status: Never smoker Past Alcohol Use History: None Reported, Occasional Past Drug Use History: None Reported General Exam - General Exam Comments Initial Comments: PHYSICAL EXAM: General Impression: Alert and oriented x3, not in acute distress HEENT: Normocephalic atraumatic, extra-ocular movements intact, pupils equal and reactive to light bilaterally, mucous membranes moist. Cardiovascular: Heart regular rate and rhythm Chest: Able to complete full sentences, no retractions, no tachypnea Abdomen: abdomen soft, non-tender, non-distended, no organomegaly Musculoskeletal: Pulses present and equal in all extremities, no peripheral edema Motor: no focal deficits noted Neurological: CN II-XII grossly intact, no focal motor or sensory deficits noted Skin: Intact with no visualized rashes Psych: Normal affect and mood Limitations: no limitations Course Vital Signs 12/27/23 12/27/23 12/27/23 21:05 22:12 23:00 Temperature 98.3 F Pulse Rate 87 77 77 Respiratory 18 18 16 Rate Blood Pressure 126/81 132/85 105/71 O2 Sat by Pulse 99 100 98 Oximetry Medical Decision Making - Medical Decision Making Was pt. sent in by a medical professional or institution (, PA, AIR CONDITIONER INSTALLER HELPER, urgent care, hospital, or longterm...) When possible be specific @ -No Did you speak to anyone other than the patient for history (EMS, parent, family, police, friend...)? What history was obtained from this source @ -No Did you review nursing and triage notes (agree or disagree)? Why? @ -I reviewed and agree with nursing and triage notes Were old charts reviewed (outside hosp., previous admission, EMS record, old EKG, old radiological studies, urgent care reports/EKG's, longterm records)? Report findings @ -No old charts were reviewed Differential Diagnosis (chest pain, altered mental status, abdominal pain women, abdominal pain men, vaginal bleeding, musculoskeletal, weakness, fever, dyspnea, syncope, headache, dizziness, GI bleed, back pain, seizure, CVA, palpatations, mental health)? @ -Differential Abdominal Pain Women: Appendicitis, Cholecystitis, diverticulosis, ischemic bowel, pancreatitis, hepatitis, UTI, gastroenteritis, AAA, incarcerated hernia, bowel obstruction, constipation, inflammatory bowel, hepatitis, peptic ulcer disease, splenic infarction, perforated viscus, vulvitis, ovarian torsion, PID, kidney stone, placenta abruption, this is not meant to be an all-inclusive list EKG interpreted by me (3pts min.). @ -None done X-rays interpreted by me (1pt min.). @ -None done CT interpreted by me (1pt min.). @ -None done U/S interpreted by me (1pt. min.). @ -Pelvic ultrasound shows intrauterine What testing was considered but not performed or refused? (CT, X-rays, U/S, labs)? Why? @ -None What meds were considered but not given or refused? Why? @ -None Did you discuss the management of the patient with other professionals (professionals i.e. , PA, AIR CONDITIONER INSTALLER HELPER, lab, RT, psych nurse, psychotherapist social worker, mottle lay up operator, teacher, correction officer reformatory, case operator)? Give summary @ -No Was smoking cessation discussed for >3mins.? @ -No Was critical care preformed (if so, how long)? @ -No Were there social determinants of health that impacted care today? How? (Homelessness, low income, unemployed, alcoholism, drug addiction, transportation, low edu. Level, literacy, decrease access to med. care, [facility], rehab)? @ -No Was there de-escalation of care discussed even if they declined (Discuss DNR or withdrawal of care, Hospice)? DNR status @ -No What co-morbidities impacted this encounter? (DM, HTN, Smoking, COPD, CAD, Cancer, CVA, ARF, Chemo, Hep., AIDS, mental health diagnosis, sleep apnea, morbid obesity)? @ -None Was patient admitted / discharged? Hospital course, mention meds given and route, prescriptions, significant lab abnormalities, going to OR and other pertinent info. @ -23-year-old female allegedly 14 weeks presents to the ER for pelvic pain. Vital signs stable. Physical examination is benign. Patient well- appearing at the bedside. Laboratory evaluation is unremarkable. No leukocytosis. Ultrasound appears to be appropriate. No complicating issues seen on radiographic images. Patient observed emergency department for approximately 4 hours. Patient notified of the results. She is well-appearing and agreeable to discharge. Undiagnosed new problem with uncertain prognosis? @ -No Drug Therapy requiring intensive monitoring for toxicity (Heparin, Nitro, Insulin, Cardizem)? @ -No Were any procedures done? @ -No Diagnosis/symptom? Acute, or Chronic, or Acute on Chronic? Uncomplicated (without systemic symptoms) or Complicated (systemic symptoms)? @ -Pelvic cramping Side effects of treatment? @ -No Exacerbation, Progression, or Severe Exacerbation? @ -No Poses a threat to life or bodily function? How? (Chest pain, [place], [place], pneumonia, PE, COPD, DKA, ARF, appy, cholecystitis, CVA, Diverticulitis, Homicidal, Suicidal, threat to staff... and all critical care pts) @ -No - Lab Data Result diagrams: 12/27/23 21:22 12/27/23 21:22 Lab Results 12/27/23 12/27/23 12/27/23 Range/Units 21:22 21:22 21:30 WBC 10.2 (3.8-10.6) k/uL RBC 4.63 (3.80-5.40) m/uL Hgb 13.4 (11.4-16.0) gm/dL Hct 41.9 (34.0-46.0) % MCV 90.6 (80.0-100.0) fL MCH 29.1 (25.0-35.0) pg MCHC 32.1 (31.0-37.0) g/dL RDW 13.1 (11.5-15.5) % Plt Count 224 (150-450) k/uL MPV 8.3 Neutrophils % 69 % Lymphocytes % 20 % Monocytes % 8 % Eosinophils % 1 % Basophils % 0 % Neutrophils # 7.0 (1.3-7.7) k/uL Lymphocytes # 2.0 (1.0-4.8) k/uL Monocytes # 0.8 (0-1.0) k/uL Eosinophils # 0.1 (0-0.7) k/uL Basophils # 0.0 (0-0.2) k/uL Sodium 137 (137-145) mmol/L Potassium 4.0 (3.5-5.1) mmol/L Chloride 106 (98-107) mmol/L Carbon Dioxide 22 (22-30) mmol/L Anion Gap 9 mmol/L BUN 8 (7-17) mg/dL Creatinine 0.50 L (0.52-1.04) mg/dL Est GFR (CKD-EPI)AfAm >90 (>60 ml/min/1.73 sqM) Est GFR (CKD-EPI)NonAf >90 (>60 ml/min/1.73 sqM) Glucose 83 (74-99) mg/dL Calcium 9.3 (8.4-10.2) mg/dL HCG, Quant 70579.7 mIU/mL Urine Color Yellow Urine Appearance Cloudy H (Clear) Urine pH 6.5 (5.0-8.0) Ur Specific [place] 1.031 (1.001-1.035) Urine Protein Trace H (Negative) Urine Glucose (UA) 3+ H (Negative) Urine Ketones Negative (Negative) Urine Blood Negative (Negative) Urine Nitrite Negative (Negative) Urine Bilirubin Negative (Negative) Urine Urobilinogen 2.0 (<2.0) mg/dL Ur Leukocyte Esterase Trace H (Negative) Urine RBC 2 (0-5) /hpf Urine WBC 2 (0-5) /hpf Ur Squamous Epith Cells 34 H (0-4) /hpf Urine Bacteria Occasional H (None) /hpf Urine Mucus Few H (None) /hpf Blood Type Blood Type Recheck Bld Type Recheck Status Antibody Screen Spec Expiration Date 12/27/23 Range/Units 22:10 WBC (3.8-10.6) k/uL RBC (3.80-5.40) m/uL Hgb (11.4-16.0) gm/dL Hct (34.0-46.0) % MCV (80.0-100.0) fL MCH (25.0-35.0) pg MCHC (31.0-37.0) g/dL RDW (11.5-15.5) % Plt Count (150-450) k/uL MPV Neutrophils % % Lymphocytes % % Monocytes % % Eosinophils % % Basophils % % Neutrophils # (1.3-7.7) k/uL Lymphocytes # (1.0-4.8) k/uL Monocytes # (0-1.0) k/uL Eosinophils # (0-0.7) k/uL Basophils # (0-0.2) k/uL Sodium (137-145) mmol/L Potassium (3.5-5.1) mmol/L Chloride (98-107) mmol/L Carbon Dioxide (22-30) mmol/L Anion Gap mmol/L BUN (7-17) mg/dL Creatinine (0.52-1.04) mg/dL Est GFR (CKD-EPI)AfAm (>60 ml/min/1.73 sqM) Est GFR (CKD-EPI)NonAf (>60 ml/min/1.73 sqM) Glucose (74-99) mg/dL Calcium (8.4-10.2) mg/dL HCG, Quant mIU/mL Urine Color Urine Appearance (Clear) Urine pH (5.0-8.0) Ur Specific [place] (1.001-1.035) Urine Protein (Negative) Urine Glucose (UA) (Negative) Urine Ketones (Negative) Urine Blood (Negative) Urine Nitrite (Negative) Urine Bilirubin (Negative) Urine Urobilinogen (<2.0) mg/dL Ur Leukocyte Esterase (Negative) Urine RBC (0-5) /hpf Urine WBC (0-5) /hpf Ur Squamous Epith Cells (0-4) /hpf Urine Bacteria (None) /hpf Urine Mucus (None) /hpf Blood Type A Positive Blood Type Recheck A Pos Bld Type Recheck Status No Antibody Screen NEGATIVE Spec Expiration Date 12/30/20232309 Disposition Clinical Impression: Pelvic pain affecting Disposition: HOME SELF-CARE Condition: Good Instructions (If sedation given, give patient instructions): Pelvic Pain in Women (ED) Is patient prescribed a controlled substance at d/c from ED?: No Referrals: Juan J Sandra DO [Primary Care Provider] - 1-2 days Time of Disposition: 01:30
[2023-12-27 21:44] LABS: Basophils % (A) 0 %; Eosinophils # (A) 0.1 k/uL (0-0.7); Eosinophils % (A) 1 %; HCT 41.9 % (34.0-46.0); HGB 13.4 gm/dL (11.4-16.0); Lymphocytes % (A) 20 %; MCH 29.1 pg (25.0-35.0); MCHC 32.1 g/dL (31.0-37.0); MCV 90.6 fL (80.0-100.0); Mean Platelet Volume 8.3; Monocytes # (A) 0.8 k/uL (0-1.0); Monocytes % (A) 8 %; Neutrophils % (A) 69 %; Platelet Count 224 k/uL (150-450); RBC 4.63 m/uL (3.80-5.40); RDW 13.1 % (11.5-15.5); WBC 10.2 k/uL (3.8-10.6)
[2023-12-27 22:13] LABS: African American GFR (CKD) >90 (>60 ml/min/1.73 sqM); Anion Gap 9 mmol/L; Blood Urea Nitrogen 8 mg/dL (7-17); Calcium 9.3 mg/dL (8.4-10.2); Carbon Dioxide 22 mmol/L (22-30); Chloride 106 mmol/L (98-107); Glucose 83 mg/dL (74-99); Non-African American GFR(CKD) >90 (>60 ml/min/1.73 sqM); Sodium 137 mmol/L (137-145)
[2023-12-27 22:29] LABS: Appearance,Urine Cloudy (Clear); Bacteria,Urine Occasional /hpf; Bilirubin,Urine Negative (Negative); Blood,Urine Negative (Negative); Color,Urine Yellow; Glucose,Urine (UA) 3+ (Negative); Ketones,Urine Negative (Negative); Leukocyte Esterase,Urine Trace (Negative); Mucus,Urine Few /hpf; Nitrite,Urine Negative (Negative); PH, Urine 6.5 (5.0-8.0); Protein,Urine Trace (Negative); RBC,Urine 2 /hpf (0-5); Specific Gravity,Urine 1.031 (1.001-1.035); Squamous Epithelial Cell,Urine 34 /hpf (0-4); WBC,Urine 2 /hpf (0-5)
[2023-12-27 22:57] LABS: HCG,Quantitative Serum 63009.7 mIU/mL
[2023-12-27 23:41] VITALS: RESP 16
--- NOTE | 2023-12-28 01:27 | US ---
EXAM: US First Trimester , Transabdominal CLINICAL HISTORY: US Reason: pelvic pain TECHNIQUE: Real-time transabdominal obstetrical ultrasound of the maternal pelvis and a first trimester with image documentation. COMPARISON: November 21, 2023 and October 28, 2023 FINDINGS: Gestation: There is a single intrauterine fetus in a breech orientation. The pole crown-rump length measures 7.63 cm consistent with 13 weeks 5 days gestation. heart rate 152 bpm. WILBER: The estimated date of delivery by ultrasound is June 28, 2024. This is 3 days later than estimated on November 21, 2023. Placenta/amniotic fluid: The placenta is posterior grade 1. No previa or abruption. Uterus/cervix: The uterus measures 12.6 x 7.2 x 8.5 cm. No myometrial mass. Ovaries: The right ovary measures 2.2 x 1.6 x 2 cm. The left ovary is not visible. Free fluid: No free fluid in the pelvis. IMPRESSION: There is a single intrauterine fetus in a breech orientation. The pole crown-rump length measures 7.63 cm consistent with 13 weeks 5 days gestation.
[2023-12-28 02:10] VITALS: BP 110/69; PULSE 70
[2023-12-28] MEDS: PRENATAL VIT-IRON-FOLIC ACID 1 EACH TABLET PO STA (02:18)
== END 2023-12-28 02:20 | disposition home or self-care (01) ==
LOC: EC 21:00
DX: O26.892 Other specified pregnancy related conditions, second trimester (principal); R10.2 Pelvic and perineal pain; Z88.0 Allergy status to penicillin; Z88.1 Allergy status to other antibiotic agents; Z88.2 Allergy status to sulfonamides; Z88.5 Allergy status to narcotic agent; Z91.030 Bee allergy status; Z88.8 Allergy status to other drugs, medicaments and biological substances; Z3A.14 14 weeks gestation of pregnancy
CPT/HCPCS: 36415; 76801; 80048; 81001; 84702; 85025; 86850; 86900; 86901; 99284

== ENCOUNTER 2024-01-21 16:42 | Emergency (ER) | payer OTHER ==
[2024-01-21 16:58] VITALS: RESP 18
--- NOTE | 2024-01-21 17:17 | ED ---
Abdominal Pain HPI - General Source: patient, RN notes reviewed Mode of arrival: ambulatory Limitations: no limitations <Brie Wolfe - Last Filed: 01/21/24 17:14> <Bao Clayton - Last Filed: 01/22/24 00:49> - General Chief Complaint: Abdominal Pain Stated Complaint: 18 weeks preg,Abd pain Time Seen by Provider: 01/21/24 17:01 - History of Present Illness Initial Comments: Quick Note-this is a 23-year-old female at 18 weeks gestation presents to the emergency department with complaint of left lower quadrant abdominal pain over the past few days. Patient states that this pain is intermittent described as a throbbing sensation. She denies vaginal bleeding or discharge. She denies fevers, dysuria, hematuria, increase in urinary frequency or urgency. Patient has had ultrasound confirming intrauterine . upcoming appointment with OB next month. (Brie Wolfe) 23-year-old female currently 18 weeks G3, presenting with chief complaint of abdominal pain. She has had left-sided abdominal pain for the past few days. It is an intermittent throbbing pain. Patient denies any vaginal bleeding or vaginal discharge. No fever, chills, vomiting, dysuria, hematuria, diarrhea, hematochezia, melena. Patient currently follows with [facility]UD[facility] Dr. Wise. (Bao Clayton) - Related Data Home Medications Medication Instructions Recorded Confirmed Albuterol Inhaler [Ventolin Hfa 2 puff INHALATION RT-Q6H PRN 12/08/15 04/17/22 Inhaler] Montelukast [Singulair] 10 mg PO HS 01/16/17 04/17/22 QUEtiapine [SEROquel] 50 mg PO HS 01/16/17 04/17/22 Naproxen 500 mg PO Q12H PRN 03/11/17 04/17/22 Cetirizine HCl 10 mg PO DAILY PRN 04/17/22 04/17/22 EPINEPHrine (Auto Inject) [Epipen] 0.3 mg IM ONCE PRN 04/17/22 04/17/22 Allergies Allergy/AdvReac Type Severity Reaction Status Date / Time codeine Allergy Rash/Hives Verified 01/21/24 16:58 Penicillins Allergy Rash/Hives Verified 01/21/24 16:58 Sulfa (Sulfonamide Allergy Rash/Hives Verified 01/21/24 16:58 Antibiotics) tomato Allergy Rash/Hives Verified 01/21/24 16:58 tramadol Allergy Rash/Hives Verified 01/21/24 16:58 venom-honey bee Allergy Swelling Verified 01/21/24 16:58 [bee venom (honey bee)] chocolate flavor AdvReac Alters Verified 01/21/24 16:58 Estrogen Levels lactose AdvReac Intolerant Verified 01/21/24 16:58 Review of Systems ROS Other: All systems not noted in ROS Statement are negative. <Brie Wolfe - Last Filed: 01/21/24 17:14> ROS Other: All systems not noted in ROS Statement are negative. <Bao Clayton - Last Filed: 01/22/24 00:49> ROS Statement: Those systems with pertinent positive or pertinent negative responses have been documented in the HPI. Past Medical History Past Medical History: Asthma, Seizure Disorder Additional Past Medical History / Comment(s): osteopenia, migraines History of Any Multi-Drug Resistant Organisms: None Reported Past Surgical History: Ear Surgery, Orthopedic Surgery, Tonsillectomy Additional Past Surgical History / Comment(s): r knee x 4 Past Psychological History: ADD/ADHD, Bipolar Smoking Status: Never smoker Past Alcohol Use History: None Reported, Occasional Past Drug Use History: None Reported <Brie Wolfe - Last Filed: 01/21/24 17:14> General Exam Limitations: no limitations <Brie Wolfe - Last Filed: 01/21/24 17:14> Limitations: no limitations General appearance: alert, in no apparent distress Head exam: Present: atraumatic, normocephalic Eye exam: Present: normal appearance, EOMI Neck exam: Present: normal inspection. Absent: meningismus Respiratory exam: Absent: respiratory distress Cardiovascular Exam: Present: regular rate GI/Abdominal exam: Present: soft, tenderness (Diffuse lower abdominal discomfort). Absent: distended, guarding, rebound, rigid Neurological exam: Present: alert, oriented X3 Psychiatric exam: Present: normal affect, normal mood Skin exam: Present: warm, dry <Bao Clayton - Last Filed: 01/22/24 00:49> - General Exam Comments Initial Comments: Visual Physical Exam Vital signs reviewed General: Well-appearing, nontoxic, no acute distress. Head: Normocephalic, atraumatic Eyes: PERRLA, EOMI ENT: Airway patent Chest: Nonlabored breathing Skin: No visual rash, normal skin tone Neuro: Alert and oriented 3 Musculoskeletal: No gross abnormalities (Brie Wolfe) Course Vital Signs 01/21/24 01/21/24 16:56 20:25 Temperature 98.0 F 98 F Pulse Rate 86 80 Respiratory 18 18 Rate Blood Pressure 123/84 107/55 O2 Sat by Pulse 99 99 Oximetry Medical Decision Making <Brie Wolfe - Last Filed: 01/21/24 17:14> - Lab Data Result diagrams: 01/21/24 17:31 01/21/24 17:31 <Bao Clayton - Last Filed: 01/22/24 00:49> - Medical Decision Making I completed the quick note portion of this chart signed Brie Wolfe PA-C (Brie Wolfe) Was pt. sent in by a medical professional or institution ([facility] [place], MANAGER WINTER, urgent care, hospital, or residential...) When possible be specific @ -No Did you speak to anyone other than the patient for history (EMS, parent, family, police, friend...)? What history was obtained from this source @ -No Did you review nursing and triage notes (agree or disagree)? Why? @ -I reviewed and agree with nursing and triage notes Were old charts reviewed (outside hosp., previous admission, EMS record, old EKG, old radiological studies, urgent care reports/EKG's, residential records)? Report findings @ -No old charts were reviewed Differential Diagnosis (chest pain, altered mental status, abdominal pain women, abdominal pain men, vaginal bleeding, weakness, fever, dyspnea, syncope, headache, dizziness, GI bleed, back pain, seizure, CVA, palpatations, mental health, musculoskeletal)? @ -MDM Differential Abdominal Pain Women: Appendicitis, Cholecystitis, diverticulosis, ischemic bowel, pancreatitis, hepatitis, UTI, gastroenteritis, AAA, incarcerated hernia, bowel obstruction, constipation, inflammatory bowel, hepatitis, peptic ulcer disease, splenic infarction, perforated viscus, vulvitis, ovarian torsion, PID, kidney stone, placenta abruption... This is not meant to be an all-inclusive list EKG interpreted by me (3pts min.). @ -As above X-rays interpreted by me (1pt min.). @ -None done CT interpreted by me (1pt min.). @ -None done U/S interpreted by me (1pt. min.). @ -Ultrasound shows single live intrauterine with estimated gestational age of 18 weeks 1 day by LMP. Current ultrasound biometry is concordant at 17 weeks 6 days 13th percentile for weight. Low-lying posterior placenta, the caudal margin located approximately 2 cm from the internal cervical os. Complete survey recommended at 18 to 20 weeks. Assess for appropriate interval growth at that time given 13th percentile. What testing was considered but not performed or refused? (CT, X-rays, U/S, labs)? Why? @ -None What meds were considered but not given or refused? Why? @ -None Did you discuss the management of the patient with other professionals (professionals i.e. , PA, MANAGER WINTER, lab, RT, psych nurse, social media intern, production supv, teacher, nuclear security officer, case picker)? Give summary @ -No Was smoking cessation discussed for >3mins.? @ -No Was critical care preformed (if so, how long)? @ -No Were there social determinants of health that impacted care today? How? (Homelessness, low income, unemployed, alcoholism, drug addiction, transportation, low edu. Level, literacy, decrease access to med. care, residential, rehab)? @ -No Was there de-escalation of care discussed even if they declined (Discuss DNR or withdrawal of care, Hospice)? DNR status @ -No What co-morbidities impacted this encounter? (DM, HTN, Smoking, COPD, CAD, Cancer, CVA, ARF, Chemo, Hep., AIDS, mental health diagnosis, sleep apnea, morbid obesity)? @ -None Was patient admitted / discharged? Hospital course, mention meds given and route, prescriptions, significant lab abnormalities, going to OR and other pertinent info. @ -23-year-old female presenting with chief complaint of left-sided pelvic pain. Currently 18 weeks . No vaginal bleeding. WBC 11.0, likely due to . hCG 20,549. Urine shows no infectious process or bleeding. Ultrasound shows single live intrauterine gestation, 13 percentile for weight. Previous blood type on file A positive. Patient is educated on today's findings. Instructed to follow-up with her AUD[facility] M[facility] Dr. Wise. Discharged home. Follow-up with PCP. Report back to ER with any new or worsening symptoms. Discussed return parameters and answered all questions. Patient conveyed verbal understanding and agreed to the plan. I discussed this case in detail with my attending Dr. Chavez Undiagnosed new problem with uncertain prognosis? @ -No Drug Therapy requiring intensive monitoring for toxicity (Heparin, Nitro, Insulin, Cardizem)? @ -No Were any procedures done? @ -No Diagnosis/symptom? @ -Threatened miscarriage Acute, or Chronic, or Acute on Chronic? @ -Acute Uncomplicated (without systemic symptoms) or Complicated (systemic symptoms)? @ -Uncomplicated Side effects of treatment? @ -No Exacerbation, Progression, or Severe Exacerbation? @ -No Poses a threat to life or bodily function? How? (Chest pain, [place], [place], pneumonia, PE, COPD, DKA, ARF, appy, cholecystitis, CVA, Diverticulitis, Homicidal, Suicidal, threat to staff... and all critical care pts) @ -Low likelihood (Bao Clayton) - Lab Data Lab Results 01/21/24 01/21/24 01/21/24 Range/Units 17:00 17:31 17:31 WBC 11.0 H (3.8-10.6) k/uL RBC 4.26 (3.80-5.40) m/uL Hgb 12.9 (11.4-16.0) gm/dL Hct 38.2 (34.0-46.0) % MCV 89.6 (80.0-100.0) fL MCH 30.2 (25.0-35.0) pg MCHC 33.8 (31.0-37.0) g/dL RDW 13.0 (11.5-15.5) % Plt Count 243 (150-450) k/uL MPV 8.2 Neutrophils % 72 % Lymphocytes % 18 % Monocytes % 6 % Eosinophils % 2 % Basophils % 0 % Neutrophils # 7.9 H (1.3-7.7) k/uL Lymphocytes # 1.9 (1.0-4.8) k/uL Monocytes # 0.7 (0-1.0) k/uL Eosinophils # 0.2 (0-0.7) k/uL Basophils # 0.0 (0-0.2) k/uL Sodium 136 L (137-145) mmol/L Potassium 4.2 (3.5-5.1) mmol/L Chloride 106 (98-107) mmol/L Carbon Dioxide 20 L (22-30) mmol/L Anion Gap 10 mmol/L BUN 6 L (7-17) mg/dL Creatinine 0.45 L (0.52-1.04) mg/dL Est GFR (CKD-EPI)AfAm >90 (>60 ml/min/1.73 sqM) Est GFR (CKD-EPI)NonAf >90 (>60 ml/min/1.73 sqM) Glucose 106 H (74-99) mg/dL Calcium 9.6 (8.4-10.2) mg/dL Total Bilirubin 0.4 (0.2-1.3) mg/dL AST 37 H (14-36) U/L ALT 36 H (4-34) U/L Alkaline Phosphatase 75 (38-126) U/L Total Protein 6.5 (6.3-8.2) g/dL Albumin 3.9 (3.5-5.0) g/dL HCG, Quant 00870.0 mIU/mL Urine Color Yellow Urine Appearance Cloudy H (Clear) Urine pH 7.0 (5.0-8.0) Ur Specific [place] 1.026 (1.001-1.035) Urine Protein Trace H (Negative) Urine Glucose (UA) 3+ H (Negative) Urine Ketones Negative (Negative) Urine Blood Negative (Negative) Urine Nitrite Negative (Negative) Urine Bilirubin Negative (Negative) Urine Urobilinogen 2.0 (<2.0) mg/dL Ur Leukocyte Esterase Negative (Negative) Urine RBC <1 (0-5) /hpf Ur Squamous Epith Cells 1 (0-4) /hpf Urine Bacteria Rare H (None) /hpf Urine Mucus Rare H (None) /hpf Disposition <Brie Wolfe - Last Filed: 01/21/24 17:14> Is patient prescribed a controlled substance at d/c from ED?: No Time of Disposition: 20:08 <Bao Clayton - Last Filed: 01/22/24 00:49> Clinical Impression: Threatened miscarriage Disposition: HOME SELF-CARE Condition: Good Instructions (If sedation given, give patient instructions): Threatened Miscarriage (ED) Additional Instructions: Follow-up with your [facility]. Report back to ER with any new or worsening symptoms. Referrals: Juan J Sandra DO [Primary Care Provider] - 1-2 days
[2024-01-21 17:45] LABS: Appearance,Urine Cloudy (Clear); Bacteria,Urine Rare /hpf; Bilirubin,Urine Negative (Negative); Blood,Urine Negative (Negative); Color,Urine Yellow; Glucose,Urine (UA) 3+ (Negative); Ketones,Urine Negative (Negative); Leukocyte Esterase,Urine Negative (Negative); Mucus,Urine Rare /hpf; Nitrite,Urine Negative (Negative); Protein,Urine Trace (Negative); RBC,Urine <1 /hpf (0-5); Specific Gravity,Urine 1.026 (1.001-1.035); Squamous Epithelial Cell,Urine 1 /hpf (0-4)
[2024-01-21 18:27] LABS: Basophils % (A) 0 %; Eosinophils # (A) 0.2 k/uL (0-0.7); Eosinophils % (A) 2 %; HCT 38.2 % (34.0-46.0); HGB 12.9 gm/dL (11.4-16.0); Lymphocytes # (A) 1.9 k/uL (1.0-4.8); Lymphocytes % (A) 18 %; MCH 30.2 pg (25.0-35.0); MCHC 33.8 g/dL (31.0-37.0); MCV 89.6 fL (80.0-100.0); Mean Platelet Volume 8.2; Monocytes # (A) 0.7 k/uL (0-1.0); Monocytes % (A) 6 %; Neutrophils # (A) 7.9 k/uL (1.3-7.7); Neutrophils % (A) 72 %; Platelet Count 243 k/uL (150-450); RBC 4.26 m/uL (3.80-5.40)
--- NOTE | 2024-01-21 18:33 | US ---
EXAMINATION TYPE: US OB >= 14 wk fetus DATE OF EXAM: 01/21/2024 COMPARISON: 12/27/2023 CLINICAL INDICATION: Female, 23 years old with history of ab pain; Patient states abdominal pain in h er . 18 weeks. TECHNIQUE: Transabdominal (TA) GESTATIONAL AGE / DATING Physician Established: (18 weeks/1 days) EDC: 06/22/2024` Dates by LMP: (18 weeks/1 days) EDC: 06/22/2024 Dates by First Scan: (17 weeks/6 days) EDC: 06/24/2024 Dates by Current Scan: (17 weeks/6 days) EDC: 06/24/2024 Beta HCG (if available): Not available at this time SURVEY IUP: Single PLACENTA: Posterior PREVIA: the placenta tip appears to be 2.1cm away from the internal os DAVID: 11.6 cm Normal CERVICAL LENGTH (transabdominal: norm > 3.0cm): 3.2 cm BIOMETRY PRESENTATION: Breech LIE: Variable BPD: 3.98 cm 18 weeks / 1 days HC: 15.01 cm 18 weeks / 1 days AC: 12.27 cm 18 weeks / 0 days FL: 2.27 cm 16 weeks / 6 days ESTIMATED WEIGHT IN GRAMS: 196 grams ESTIMATED WEIGHT IN LBS/OZ: 0 lbs. 7 oz. WEIGHT PERCENTAGE BASED ON ESTABLISHED DATES: 13% HC/AC: 1.22 Normal FL/AC: 19% HEART RATE: 144 bpm RHYTHM: Normal IMPRESSION: 1. Single live intrauterine with estimated gestational age of 18 weeks 1 day by LMP. Curren t ultrasound biometry is concordant at 17 weeks 6 days (13th percentile for weight). 2. Low-lying posterior placenta, the caudal margin located approximately 2 cm from the internal cervi nadiya os. 3. Complete survey recommended at 18-20 weeks. Assess for appropriate interval growth at that t angy given 13th percentile.
[2024-01-21 18:53] LABS: ALT 36 U/L (4-34); AST 37 U/L (14-36); African American GFR (CKD) >90 (>60 ml/min/1.73 sqM); Albumin 3.9 g/dL (3.5-5.0); Alkaline Phosphatase 75 U/L (38-126); Anion Gap 10 mmol/L; Blood Urea Nitrogen 6 mg/dL (7-17); Calcium 9.6 mg/dL (8.4-10.2); Carbon Dioxide 20 mmol/L (22-30); Chloride 106 mmol/L (98-107); Glucose 106 mg/dL (74-99); Non-African American GFR(CKD) >90 (>60 ml/min/1.73 sqM); Potassium 4.2 mmol/L (3.5-5.1); Sodium 136 mmol/L (137-145); Total Bilirubin 0.4 mg/dL (0.2-1.3); Total Protein 6.5 g/dL (6.3-8.2)
[2024-01-21 20:26] VITALS: BP 107/55; PULSE 80; TEMP 98
== END 2024-01-21 20:26 | disposition home or self-care (01) ==
LOC: EC 16:42
DX: O20.0 Threatened abortion (principal); Z88.0 Allergy status to penicillin; Z88.2 Allergy status to sulfonamides; Z88.5 Allergy status to narcotic agent; Z91.018 Allergy to other foods; Z91.030 Bee allergy status; Z91.011 Allergy to milk products; Z3A.18 18 weeks gestation of pregnancy
CPT/HCPCS: 36415; 76805; 80053; 81001; 84702; 85025; 99284

== ENCOUNTER → 2024-01-30 | Outpatient (CLI) | payer OTHER ==
--- NOTE | 2024-01-30 11:58 | US ---
EXAMINATION TYPE: US OB anatomy transabd DATE OF EXAM: 01/30/2024 COMPARISON: 01/21/24 CLINICAL INDICATION: Female, 23 years old with history of Z34.90 ENCOUNTER FOR SUPERVISION OF NORMAL PREGNAN; anatomy TECHNIQUE: Transabdominal (TA) EXAM MEASUREMENTS: GESTATIONAL AGE / DATING Physician Established: (19 weeks/3 days) EDC: 06/22/24 Dates by LMP: (19 weeks/3 days) EDC: 06/22/24 Dates by First Scan: (19 weeks/1 days) EDC: 06/24/24 Dates by Current Scan for: (19 weeks/5 days) EDC: 06/20/24 SURVEY IUP: Single PLACENTA: Posterior PREVIA: No previa DAVID: 15.1 cm 1 CERVICAL LENGTH (transabdominal: norm > 3.0cm): 3.6 cm BIOMETRY PRESENTATION: Breech LIE: Longitudinal BPD: 4.4 cm 19 weeks / 2 days HC: 16.5 cm 19 weeks / 2 days AC: 14.0 cm 19 weeks / 3 days FL: 3.4 cm 20 weeks / 5 days ESTIMATED WEIGHT IN GRAMS: 320 grams ESTIMATED WEIGHT IN LBS/OZ: 0 lbs. 11 oz. WEIGHT PERCENTAGE BASED ON ESTABLISHED DATE: 7.3 % HC/AC: 1.18 Normal FL/AC: 24% Normal HEART RATE: 155 bpm RHYTHM: Normal ANATOMY SEEN (within normal limits): * Lateral Vent (< 1 cm) 0.7 cm * Cisterna Magna (< 1.1 cm) 0.4 cm * Nuchal Fold (< 0.6 cm) 0.4 cm * Cerebellum (varies with age) 1.9 cm Choroid Plexus (bilateral) Midline Falx Cavus Septi Pellucidi Stomach Situs Nose / Lips Diaphragm Bladder Cord Insert Three Vessel Cord Longitudinal Spine Transverse Spine Arms (bilateral) Legs (bilateral) ANATOMY SEEN (does not appear within normal limits): ANATOMY NOT SEEN: Four Chamber Heart Outflow tracts: LVOT/RVOT Kidneys (bilateral) IMPRESSION: 1. Single live intrauterine with estimated gestational age of 19 weeks 5 days by ultrasoun d. This is concordant with LMP of 19 weeks 3 days. Decreased percentile for weight of 7.3%, previousl y 13%. 2. The visualized anatomy is within normal limits. Anatomy not seen as described above. Short-term f ollow-up exam is recommended to assess for remaining anatomy and to assess for interval growth.
== END | disposition home or self-care (01) ==
LOC: RADUSWWP 10:32
PROVIDERS: ATTEND Obstetrics & Gynecology
DX: Z34.92 Encounter for supervision of normal pregnancy, unspecified, second trimester (principal); Z3A.19 19 weeks gestation of pregnancy
CPT/HCPCS: 76811

== ENCOUNTER 2024-02-20 21:01 | Emergency (ER) | payer OTHER | END 2024-02-21 02:05 | disposition home or self-care (01) | LOC: EC 21:01 | CPT/HCPCS: 99282 ==

== ENCOUNTER 2024-03-20 17:52 | Outpatient (CLI) | payer OTHER ==
[2024-03-20 18:48] VITALS: BP 127/89; PULSE 106; RESP 16; TEMP 97
--- NOTE | 2024-03-24 11:12 | P.MSEPDOC ---
Presenting Problems - Arrival Data Date of Arrival on Unit: 03/20/24 Time of Arrival on Unit: 17:52 Mode of Transport: Ambulatory - Complaint OB-Reason for Admission/Chief Complaint: Decreased Movement Medical History - Information : 3 Para: 0 Term: 0 : 0 Abortions: Spontaneous or Elective: 2 Number of Living Children: 0 - Gestational Age Gestational Age by WILBER (wks/days): 26 Weeks and 4 Days - History Comment: Pt DOM to us. Started care with Dr Wise and has seen [place] [facility] on [address] in [place] since Dr Wise closed the practice. Review of Systems - Review of Systems Constitutional: No problems Breast: No problems ENT: No problems Cardiovascular: No problems Respiratory: No problems Gastrointestinal: No problems Genitourinary: No problems Musculoskeletal: No problems Neurological: No problems Skin: No problems Vital Signs - Temperature Temperature: 97.0 F Temperature Source: Temporal Artery Scan - Pulse Right Pulse Rate: 106 Pulse Assessment Method: Automatic Cuff - Respirations Respiratory Rate: 16 Oxygen Delivery Method: Room Air O2 Sat by Pulse Oximetry: 99 - Blood Pressure Right Arm Blood Pressure: 127/89 Blood Pressure Mean: 101 Blood Pressure Source: Automatic Cuff Medical Screen Scoring - Assessment - Baby A Baseline FHR: 130 Heart Rate - NICHD Category: Category I (Normal) Physician Notification - Physician Notified Physician Notified Date: 03/20/24 Physician Notified Time: 18:25 Physician: Edita Llamas New Order Received: Yes (discharge home with instruction) Maternal Triage Index - Maternal Triage Index Presenting for scheduled procedure w/no complaint: No - Stat/Priority 1 Stat Priority 1: No - Urgent/Priority 2 Urgent Priority 2: Yes Provider Notified: Edita Llamas Provider Notified Time: 18:25 Criteria Met for Priority 2: heart rate within normal range - Prompt/Priority 3 Prompt Priority 3: No - Non-Urgent/Priority 4 Non-Urgent Priority 4: No - Scheduled/Requesting Priority 5 Scheduled/Requesting Priority 5: No Disposition - Disposition OB Disposition: Discharge to home Discharge Date: 03/20/24 Discharge Time: 18:35 I agree with the RN Medical Screening Exam: Yes Case reviewed; plan agreed upon as documented in EMR&OBIX.: Yes Diagnosis: DECREASED MOVEMENTS, THIRD TRIMESTER, FETUS 1
== END 2024-03-20 18:35 | disposition home or self-care (01) ==
LOC: FBPOP 17:52
PROVIDERS: ATTEND Obstetrics & Gynecology
CPT/HCPCS: 99213